=== PATIENT | female | born 1945 | race Caucasian/White ===

== ENCOUNTER 2020-10-25 18:29 | Emergency (ER) | payer MEDICARE, SELFPAY ==
[2020-10-25 18:31] VITALS: BP 198/109; PULSE 78; RESP 16; TEMP 36.7; O2SAT 97; BMI 31.1
[2020-10-25 18:51] VITALS: BP 212/75
--- NOTE | 2020-10-25 19:09 | ED.VIS.BACK ---
HPI History of Present Illness Chief Complaint: Back Detail of Chief Complaint: Back pain that started about 3 days ago. Informant: patient and family Onset/Context/Timing Quality: Sharp and Aching Current Severity: 10 Worsened by: improves with Movement Associated Symptoms Associated Symptoms: Negative for Numbness, Tingling, Radiation to Right Leg, Dysuria, Unable to Ambulate, Unable to Transfer and Urinary Retention Narrative Narrative: Patient's presenting with low back pain that started 3 days ago. Patient went her chiropractor 2 days ago and had some x-rays. He denies any trauma to her back. She denies pain rating down her legs. She denies any change in bowel or bladder function. She denies urinary symptoms. She denies fever. She denies abdominal pain. Prior similar symptoms: No [facility] Medical History (Updated 10/25/20 @ 19:[address] Imani Edward, DO) Back pain Glaucoma Home Medications cyclobenzaprine 10 mg PO TID PRN #20 tablet 10/25/20 [Rx Last Taken Unknown] hydrocodone-acetaminophen 1 tab PO Q4H PRN PRN 2 Days #14 tablet 10/25/20 [Rx Last Taken Unknown] Allergy/AdvReac Type Severity Reaction Status Date / Time No Known Allergies Allergy Verified 10/25/20 18:30 Social History Smoking Status: Former smoker ROS ROS ED Constitutional Constitutional ED: Reports systems reviewed and no addt'l complaints, except as documented; Denies body ache(s), change in weight or chills Eyes Eyes: Denies acute decrease in peripheral vision, change in vision, double vision or loss of vision ENT ENT ED: Reports none; Denies ear pain, lip swelling, loss taste/smell, neck pain, otalgia or sore throat Cardiovascular Cardiovascular: Reports none; Denies abdominal pain, chest pain with activity, leg edema, lightheadedness, palpitations, rapid heart rate or syncope Respiratory/Chest Respiratory/Chest: Reports none; Denies change in mental status, dry cough, dyspnea, hemoptysis, shortness of breath at rest or shortness of breath with exertion Gastrointestinal Gastrointestinal: Reports none; Denies abdominal pain, change in stool character, diarrhea, hematemesis, hematochezia, melena, rectal bleeding or vomiting Genitourinary Genitourinary ED: Reports none; Denies abdominal discomfort, anuria, dysuria, genital pain or polyuria Musculoskeletal Musculoskeletal: Reports none and back pain; Denies arthralgias, difficulty walking, extremity pain, muscle weakness, myalgias or neck pain Integumentary Reports none; Denies abscess or rash Neurologic Neurologic: Reports none; Denies abnormal gait, confusion, focal weakness, frequent falls, headache(s), loss of vision, numbness, paresthesias, radicular pain, vertigo or weakness Psychiatric Psychiatric: Reports systems reviewed and no addt'l complaints, except as documented and none; Denies behavioral changes, confusion, difficulty concentrating, hallucinations, suicidal ideation, tactile hallucinations or visual hallucinations Endocrine Endocrinology: Denies none, cold intolerance, excessive sweating, fatigue or heat intolerance Hematologic/Lymphatic Hematologic/Lymphatic: Reports none; Denies anemia, easy bleeding or easy bruising Allergic/Immunologic Allergic/Immunologic ED: Denies as per HPI, none, lip swelling, mouth swelling, throat swelling, tongue swelling or hives EXAM Physical Exam Const Vital Signs: 10/25/20 18:31 10/25/20 18:51 Temperature 98.1 F Temperature Source Temporal Pulse Rate 78 Respiratory Rate 16 Blood Pressure 198/109 H 212/75 H Blood Pressure Mean 138 120 Pulse Ox 97 Oxygen Delivery Method Room Air Positive well nourished and well developed General Appearance ED: well developed and NAD HEENT Reports TM's clear and moist mucous membranes normocephalic and atraumatic; Negative for trauma or tenderness Tympanic Membrane ED: Yes TM's clear Eyes PERRL and EOMs intact bilaterally General Eye ED: Negative for pale conjunctiva or scleral icterus Neck no lymphadenopathy, supple and no JVD General: Negative for tenderness Chest Wall inspection of chest normal and palpation of chest normal Chest: Negative for tenderness Resp normal respiratory effort and clear to auscultation bilaterally Effort and Inspection: Negative for respiratory distress or pain with movement Auscultation: Negative for rhonchi, wheezes or diminished lung sounds Cardio regular rate, regular rhythm, S1 normal heart sound, S2 normal heart sound and no murmurs Peripheral Pulses: pulses 2+ throughout GI normal to inspection, nondistended, normoactive bowel sounds, soft to palpation, non-tender, non-distended and no masses Back/Spine no CVA tenderness, normal to inspection and no thoracic nor lumbar tenderness Back/Spine Narrative: Patient has some mild tenderness palpation above the right posterior superior iliac spine. Negative straight leg raises. Deep tendon reflexes are plus 2 out of 4 bilaterally at the patella and Achilles. Patient has normal 5 extension bilaterally. Patient has normal sensation to light touch. General Back: Negative for CVA tenderness Extremity normal to inspection General Extremety ED: Negative for edema General Extremity: Negative for edema Neuro oriented x3, CN's II-XII intact bilaterally, no sensory deficits noted and gait normal Sensorium / Orientation: awake, alert, oriented to person, oriented to place and oriented to time Motor Exam: strength 5/5 throughout and strength abnormal Deep Tendon Reflexes: Rt Patellar (L4): 2+, Lt Patellar (L4): 2+, Rt Ankle (S1): 2+ and Lt Ankle (S1): 2+ Deep Tendon Reflexes Back: Rt Patellar (L4): 2+, Lt Patellar (L4): 2+, Rt Ankle (S1): 2+ and Lt Ankle (S1): 2+ Psych mental status grossly normal Skin no rashes or lesions noted and no wounds MDM MDM MDM Narrative Medical decision making narrative: Patient will be medicated with Dilaudid and Zofran as well as Norflex. She will be given a prescription for [place] and Flexeril. Patient will be advised to follow-up with primary care physician air pollution inspector for no doc within next 3 to 5 days. At this point I do not feel any imaging is indicated. There are no concerning signs or symptoms of cauda equina. Discharge Plan Triage Chief Complaint: Back ED Provider: Imani Edward Dx/Rx/DC Orders Clinical Impression: Non-traumatic mid back pain Instructions: ED Back Spasm, No Trauma Prescriptions: New cyclobenzaprine [cyclobenzaprine] 10 MG tablet 10 mg PO TID PRN (Reason: Muscle Spasm) Qty: 20 RF: 0 hydrocodone-acetaminophen [hydrocodone-acetaminophen] 1 TABLET tablet 1 tab PO Q4H PRN PRN (Reason: Pain) 2 Days Qty: 14 RF: 0 Primary Care Provider: NOT,DEFINED Referrals: Ed Goldberg MD [STAFF PHYSICIAN] - 3-5 Days NOT,DEFINED [Primary Care Provider] - Disposition Disposition: Home, self care
[2020-10-25] MEDS: HYDROmorphone 1 MG/ML Syringe IM (19:19)
[2020-10-25] MEDS: Ondansetron 4 MG/2 ML Vial IM (19:19)
[2020-10-25] MEDS: Orphenadrine 60 MG/2 ML Ampul IM (19:20)
== END 2020-10-25 19:59 | disposition home or self-care (01) ==
LOC: ED 19:31
PROVIDERS: Emergency Provider Emergency Medicine
DX: M54.6 Pain in thoracic spine (principal); M54.5 Low back pain; H40.9 Unspecified glaucoma; Z87.891 Personal history of nicotine dependence
CPT/HCPCS: 96372; 99282; J2405

== ENCOUNTER 2021-01-28 03:59 | Inpatient (IN) | payer MEDICARE, SELFPAY ==
[2021-01-28] VITALS (18 sets, daily range): BP systolic 138–206; BP diastolic 60–119; PULSE 56–88; RESP 15–22; TEMP 36.1–36.6; O2SAT 95–98; BMI 29.3; BMI 29.9
--- NOTE | 2021-01-28 04:06 | CT_ITS ---
STUDY: CT BRAIN WITHOUT CONTRAST REASON FOR EXAM: Female, 75 years old. Stroke RADIATION DOSAGE (If Supplied By Facility): CTDIvol = ( 44.99 ) mGy TECHNIQUE: Transaxial CT imaging of the brain was performed without administration of intravenous contrast material. Individualized dose optimization techniques were used for this CT. COMPARISON: No relevant priors. FINDINGS: Normal soft tissue structures. Normal calvarium. There is mild cerebral atrophy with widening of the extra-axial spaces and ventricular dilatation. There is mild to moderate bilateral periventricular and subcortical white matter hypoattenuation which is symmetric in distribution. Normal basal ganglia and thalami. Normal brainstem. Normal cerebellum. There is no intracranial hemorrhage. There are no findings of an acute ischemic infarction. There is mild mucoperiosteal thickening of the paranasal sinuses. . CT/STROKE Brain/Head without Cont IMPRESSION: 1. No acute intracranial abnormality. 2. Mild bilateral periventricular and subcortical white matter chronic small vessel disease with age appropriate cerebral atrophy. 3. Chronic sinus disease N.B. : The above Results were Read Back by Paulo Matamoros MD to Dr. Eric MD, and understanding confirmed on 01/28/2021 04:22:00 (ET). Electronically Signed: Paulo Matamoros MD at 4:23 EDT Tel , Service support ,
--- NOTE | 2021-01-28 04:06 | EKG12_ITS ---
Test Reason : STROKE Blood Pressure : / mmHG Vent. Rate : 076 BPM Atrial Rate : 076 BPM P-R Int : 158 ms QRS Dur : 092 ms QT Int : 378 ms P-R-T Axes : 017 044 -63 degrees QTc Int : 425 ms Normal sinus rhythm Nonspecific ST and T wave abnormality Abnormal ECG Confirmed by BRE FELIX, REID ([id number]), film waxer OSCAR BUTCHER ([id number]) on 01/29/2021 10:09:51 AM Referred By: SHRUTI Confirmed By:REID DÍAZ MD
--- NOTE | 2021-01-28 04:06 | RAD_ITS ---
STUDY: X-RAY CHEST REASON FOR EXAM: Female, 75 years old. Neuro deficit, acute, stroke suspected TECHNIQUE: Single AP portable view of the chest. COMPARISON: None. FINDINGS: There is atelectasis versus small infiltrate overlying the peripheral left lung base.. There is no demonstrated pleural abnormality. Normal size heart. Normal mediastinum and elicia. There is atherosclerotic calcification of the aortic arch with tortuosity. There are no demonstrated acute fractures or destructive bone lesions. There is no demonstrated abnormality of the visualized soft tissue structures of the upper abdomen. RAD/Chest 1 View IMPRESSION: Atelectasis versus small infiltrate in the lateral left lung base. Electronically Signed: Isaias Sepulveda MD at 5:45 EDT , Service support ,
--- NOTE | 2021-01-28 04:08 | EDS_ITS ---
HPI History of Present Illness Chief Complaint: Neuro S/Sx Informant: patient and family Narrative Narrative: I discussed with patient, EMS and family members. Evidently this patient was seen by her daughter last night about 1829. The daughter states that she just did not seem right but she did not have focal weakness or slurring of her words. She seemed very tired. She thought something was wrong. Her mother then told her that she had a glass of beer and a drink of wine and they thought that this was the cause. It sounds like the patient went to bed about 8:00. When she woke up this morning she had trouble dialing the phone, had speech difficulty and left-sided weakness. So she might of had nonspecific nonfocal symptoms at this 1830 yesterday. However last known well may be at 8 PM or 1999 when she went to bed. She has no headache. No recent trauma. Patient does have a strong family history of strokes but has no history of strokes or self. No heart disease. No diabetes blood pressure cholesterol. Only medication she takes are eyedrops for glaucoma. Nothing makes her symptoms better or worse. [facility] Medical History (Updated 01/28/21 @ 04:[address] Lito Reyes MD) Back pain Carpal tunnel syndrome of left wrist Carpal tunnel syndrome on both sides Glaucoma Heel spur Home Medications latanoprost 1 drp EACH EYE BID 01/28/21 [History Last Taken Unknown] timolol maleate 1 drp EACH EYE DAILY 01/28/21 [History Last Taken Unknown] Allergy/AdvReac Type Severity Reaction Status Date / Time No Known Allergies Allergy Verified 01/28/21 04:02 Social History Smoking Status: Former smoker ROS ROS ED Constitutional Constitutional ED: Denies chills or fever(s) Eyes Eyes: Denies blurry vision, change in vision or diplopia ENT ENT ED: Denies rhinorrhea Cardiovascular Cardiovascular: Denies chest pain or palpitations Respiratory/Chest Respiratory/Chest: Denies cough or dyspnea Gastrointestinal Gastrointestinal: Denies abdominal pain, nausea or vomiting Genitourinary Genitourinary ED: Denies urinary frequency Musculoskeletal Musculoskeletal: Denies back pain Integumentary Denies rash Neurologic Neurologic: Reports weakness; Denies headache(s) or paresthesias Psychiatric Psychiatric: Denies depression Hematologic/Lymphatic Hematologic/Lymphatic: Denies easy bleeding or easy bruising Allergic/Immunologic Allergic/Immunologic ED: Denies urticaria EXAM Physical Exam Narrative Exam Narrative: Patient is seen in the hallway on ambulance cot. We were waiting for her at her arrival. Const Vital Signs: 01/28/21 04:23 01/28/21 04:28 01/28/21 04:31 Temperature 97.8 F 97.8 F Temperature Source Temporal Temporal Pulse Rate 88 78 82 Respiratory Rate 22 H 22 H 22 H Blood Pressure 173/108 H 138/119 H 138/119 H Blood Pressure Mean 129 125 125 Pulse Ox 95 97 97 Oxygen Delivery Method Room Air Room Air Room Air 01/28/21 04:36 01/28/21 05:06 01/28/21 05:10 Temperature Temperature Source Pulse Rate 80 68 73 Respiratory Rate 22 H 15 19 H Blood Pressure 138/119 H 202/68 H 202/68 H Blood Pressure Mean 125 112 112 Pulse Ox 96 97 97 Oxygen Delivery Method Room Air Positive well nourished and well developed General Appearance ED: well developed and NAD HEENT atraumatic and trauma Eyes Eyes Narrative: Patient does have some subtle relative weakness to the left side of his her face. She is able to smile speak open and close eyes but there is subtle weakness. Neck supple Resp normal respiratory effort and clear to auscultation bilaterally Cardio Rate: regular rate Rhythm: regular rhythm GI normal to inspection, nondistended, normoactive bowel sounds, soft to palpation and non-tender Back/Spine no CVA tenderness Extremity normal to inspection General Extremety ED: Negative for edema or tenderness General Extremity: Negative for edema Neuro oriented x3 Sensorium / Orientation: alert Psych mental status grossly normal Skin Rashes: no rashes STROKE Vital Signs/Narrative: Vital Signs Temp Pulse Resp BP Pulse Ox 01/28/21 05:10 73 19 H 202/68 H 97 01/28/21 05:06 68 15 202/68 H 97 01/28/21 04:36 80 22 H 138/119 H 96 01/28/21 04:31 82 22 H 138/119 H 97 01/28/21 04:28 97.8 F 78 22 H 138/119 H 97 01/28/21 04:23 97.8 F 88 22 H 173/108 H 95 NIHSS Initial: 1a Level of Consciousness: 0 1b LOC Questions (Score 2 if aphasic/stupor): 0 1c LOC Commands (Only score 1st attempt): 0 2 Best Gaze (If aphasic, use reflexive mvmts.): 0 3 Visual: 0 4 Facial Palsy: 1 5 Motor Arm Right (UN = amputation/fusion): 0 5 Motor Arm Left: 1 6 Motor Leg Right: 0 6 Motor Leg Left: 2 7 Limb ataxia (Only + if out of proportion): 0 8 Sensory (Aphasia/stupor=0 or 1, coma=2): 0 9 Best Language: 0 10 Dysarthria (mute, coma=2, intubated=UN): 1 11 Extinction and Inattention (only scored if +): 0 Total Score: 5 MDM MDM MDM Narrative Medical decision making narrative: Patient's recheck when she gets back to the room. Her NIH now is 4. She had had a 5 because the first time I checked her left leg it did drop and hit the bed. She is now able to hold it up for the chemistry quality control technician but it is weaker and does do a little bit of drifting. It does not hit the bed now. Blood pressure is mildly elevated. We are rechecking a second 1. We have teleneurology dialed up and there about the start talking to her. Patient has had neurology evaluation. They agree that there likely is a stroke ongoing. However, it is not a large area likely. She actually has better strength of both her left arm and left leg now. They are still clearly weaker than the right but she can hold them up for a full 5 seconds without much difficulty. She is clearly showing slight improvement. Her dysarthria, however, is unchanged. The plan was no TPA due to the level of stroke, the combination of improving, and the time since onset. Patient is now stating that somewhere between 6 and 8 she noticed she was having trouble walking. Therefore her symptoms are approaching up to 11 hours now. The plan was that we would not intervene with TPA. If there was an abnormality on the CTA we could consider secondary treatment. Right after leaving the room I got called by radiology and there is no acute abnormality on her CTA. I ask again explained the plan to the patient and family. We also discussed permissive hypertension. Patient's blood pressure has been maintained below threshold so far. Blood work shows some mild elevation of glucose. Alcohol level is quite low as was expected. Covid is negative. EKG shows sinus rhythm. Discussed case with hospitalist. Patient will be admitted. She is given aspirin here. Lab Data Labs: Laboratory Results - last 24 hr 01/28/21 01/28/21 01/28/21 04:18 04:18 04:18 WBC 9.7 RBC 4.78 Hgb 14.1 Hct 43.1 MCV 90.2 MCH 29.5 MCHC 32.7 RDW Std Deviation 44.6 H RDW Coeff of Robi 13.4 Plt Count 228 MPV 11.4 Immature Gran % (Auto) 0.300 Neut % (Auto) 60.5 Lymph % (Auto) 31.9 [place] % (Auto) 5.1 Eos % (Auto) 1.5 Baso % (Auto) 0.7 Absolute Neuts (auto) 5.9 Absolute Lymphs (auto) 3.10 Nucleated RBC % 0 PT 13.2 INR 1.1 APTT 30.1 Sodium 141 Potassium 3.5 Chloride 109 H Carbon Dioxide 25.0 Anion Gap 7 BUN 18 Creatinine 1.08 H Estim Creat Clear Calc 41.49 Est GFR (MDRD) Af Amer 63 Est GFR (MDRD) Non-Af 52 L BUN/Creatinine Ratio 16.7 Glucose 144 H Calcium 9.1 Troponin I High Sens 9 Ethyl Alcohol 01/28/21 04:18 WBC RBC Hgb Hct MCV MCH MCHC RDW Std Deviation RDW Coeff of Robi Plt Count MPV Immature Gran % (Auto) Neut % (Auto) Lymph % (Auto) [place] % (Auto) Eos % (Auto) Baso % (Auto) Absolute Neuts (auto) Absolute Lymphs (auto) Nucleated RBC % PT INR APTT Sodium Potassium Chloride Carbon Dioxide Anion Gap BUN Creatinine Estim Creat Clear Calc Est GFR (MDRD) Af Amer Est GFR (MDRD) Non-Af BUN/Creatinine Ratio Glucose Calcium Troponin I High Sens Ethyl Alcohol < 3.0 Radiography Diagnostic Testing: Radiology Impression Head/Neck CTA 01/28/21 04:11 IMPRESSION: 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 The P2 segments are supplied by patent posterior communicating arteries bilaterally. Diminutive left vertebral artery, which does not supply the basilar artery. This is on a developmental basis. 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 No other evidence for hemodynamically significant arterial stenosis in the head or neck. No visualized occlusion of major arteries. No visualized aneurysm. Diminutive basilar artery, probably on a development basis. N.B. : The above Results were Read Back by Isaias Sepulveda MD to MD Jose Antonio, and understanding confirmed on 01/28/2021 04:40:28 (ET). 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 The P2 segments are supplied by patent posterior communicating arteries bilaterally. Diminutive left vertebral artery, which does not supply the basilar artery. This is on a developmental basis. 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 No other evidence for hemodynamically significant arterial stenosis in the head or neck. No visualized occlusion of major arteries. No visualized aneurysm. Diminutive basilar artery, probably on a development basis. N.B. : The above Results were Read Back by Isaias Sepulveda MD to MD Jose Antonio, and understanding confirmed on 01/28/2021 04:40:28 (ET). Electronically Signed: Isaias Sepulveda MD at 4:53 EDT , Service support , EKG Initial EKG: Comments: EKG done as part of stroke work-up read by me does show sinus rhythm with a rate of 76. No ventricular ectopy. There is mild baseline variation and diffuse nonspecific ST and T wave changes. No sign of infarct or ischemia. OK interval, QRS duration, QTc are normal. Stroke Documentation Questions Stroke Team Activated: Yes Discharge Plan Triage Chief Complaint: Neuro S/Sx ED Provider: Lito Reyes Dx/Rx/DC Orders Clinical Impression: Acute CVA (cerebrovascular accident) Prescriptions: No Action latanoprost 0.005 % drops 1 drp EACH EYE BID RF: 0 timolol maleate 0.5 % drops 1 drp EACH EYE DAILY RF: 0 Primary Care Provider: Care Physician,No Primary Referrals: Care Physician,No Primary [Primary Care Provider] -
--- NOTE | 2021-01-28 04:11 | CT_ITS ---
STUDY: CTA HEAD AND NECK WITH CONTRAST REASON FOR EXAM: Female, 75 years old. Neuro deficit, acute, stroke suspected RADIATION DOSAGE (If Supplied By Facility): CTDIvol = ( 22.83 ) mGy, DLP = ( 815.23 ) mGycm TECHNIQUE: CT angiography was performed with a multi-detector CT scanner. Data acquisition was obtained from the skull base through the vertex following intravenous administration of IV 100mL Isovue-370. MIP images were reconstructed from the axial data set. Post-processing of the angiographic images was performed, with multiplanar reformation, but without 3D reconstruction. Individualized dose optimization techniques were used for this CT. COMPARISON: Noncontrast CT scan brain 01/28/2021. FINDINGS: Normal bilateral petrous carotid arteries. There is calcified plaque formation of the right cavernous carotid artery, with a mild stenosis (less than 50%). There is calcified plaque formation of the left cavernous carotid artery, with a mild stenosis (less than 50%). Normal right A1 segments of the anterior cerebral artery. Normal left A1 segments of the anterior cerebral artery. There is non-visualization of the anterior communicating artery (ACOM). Normal bilateral A2 segments of the anterior cerebral arteries. Normal right M1 and M2 segments of the middle cerebral arteries, with a normal M1 bifurcation. Normal left M1 and M2 segments of the middle cerebral arteries, with a normal M1 bifurcation. Normal right posterior communicating artery (PCOM). Normal left posterior communicating artery (PCOM). There is a small atretic left vertebral artery with a dominant right vertebral artery. The left vertebral artery does not visibly supply the basilar artery. As seen on series 2, axial images 346-347, there is focal severe stenosis of the right vertebral artery, without demonstrated occlusion. 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 The visualized bilateral superior cerebellar (SCA) arteries are normal. There is absence of the right and left P1 segments of the posterior cerebral arteries. Normal visualized bilateral P2 and P3 segments of the posterior cerebral arteries, which are supplied by the posterior communicating arteries. There is no demonstrated aneurysm of the red devil of [place]. There is no demonstrated acute abnormality of the visualized brain. AORTIC ARCH: There is atherosclerotic calcific plaque formation of the aortic arch and great vessels arising from the aortic arch, without a hemodynamically significant stenosis. There is a normal origin of the brachiocephalic, left common carotid, and left subclavian arteries.. RIGHT CAROTID ARTERIES: Normal right common carotid artery (CCA). There is mild atherosclerotic plaque formation with minimal narrowing of the right carotid bulb. Normal origin of the right internal carotid (ICA) artery without a hemodynamically significant stenosis. Normal visualized cervical portion of the right internal carotid artery. Normal origin of the right external carotid artery (ECA). LEFT CAROTID ARTERIES: Normal left common carotid artery (CCA). Normal left common carotid bulb. Normal origin of the left internal carotid (ICA) artery without a hemodynamically significant stenosis. Normal visualized cervical portion of the left internal carotid artery. Normal origin of the left external carotid artery (ECA). VERTEBRAL ARTERIES: There is enhancement within the bilateral vertebral arteries with a small left vertebral artery, and a dominant right vertebral artery. 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 The P2 segments are supplied by patent posterior communicating arteries bilaterally. Diminutive left vertebral artery, which does not supply the basilar artery. This is on a developmental basis. 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 No other evidence for hemodynamically significant arterial stenosis in the head or neck. No visualized occlusion of major arteries. No visualized aneurysm. Diminutive basilar artery, probably on a development basis. N.B. : The above Results were Read Back by Isaias Sepulveda MD to MD Jose Antonio, and understanding confirmed on 01/28/2021 04:40:28 (ET). Electronically Signed: Isaias Sepulveda MD at 4:53 EDT , Service support ,
[2021-01-28 04:23] LABS: Absolute Neutrophil Count 5.9 X10^3/uL (2.0-7.7); Basophil# 0.07 X10^3/uL; Basophil% 0.7 % (0-1); Eosinophil# 0.15 X10^3/uL; Eosinophils% 1.5 % (0-5); Hematocrit 43.1 % (37-47); Hemoglobin 14.1 g/dL (12.0-15.0); Lymphocyte % 31.9 % (19-41); Mean Corp Hgb Conc 32.7 g/dL (32-36); Mean Corpuscular Hgb 29.5 pg (27.0-32.0); Mean Corpuscular Volume 90.2 fL (81-99); Mean Platelet Vol. 11.4 fl (6.2-12.0); Monocyte% 5.1 % (0-10); NRBC Flagged by Analyzer 0 % (0-5); Neutrophil # 5.87 X10^3/uL (2.7-7.7); Neutrophil % 60.5 % (47-70); Platelet Count 228 K/mm3 (150-450); RBC Distribution Width CV 13.4 % (11.6-14.6); RBC Distribution Width SD 44.6 fl (35.1-43.9); Red Blood Count 4.78 M/mm3 (4.2-5.4); White Blood Count 9.7 K/mm3 (4.4-11.0)
--- NOTE | 2021-01-28 04:31 | ED.RN ---
osu beaming in at this time
[2021-01-28 04:35] LABS: International Normalized Ratio 1.1; Prothrombin Time (Protime)PT. 13.2 SECONDS (11.7-14.9)
[2021-01-28 04:36] LABS: Partial Thromboplast Time 30.1 Seconds (24.1-36.2)
[2021-01-28 04:43] LABS: Anion Gap 7 (5-15); BUN 18 mg/dL (7-18); BUN/Creat Ratio 16.7 RATIO (10-20); Calcium,Total 9.1 mg/dL (8.5-10.1); Chloride 109 mmol/L (98-107); Creatinine, Serum 1.08 mg/dL (0.55-1.02); EST Glomerular Filtration Rate 52 mL/min (>60); Est Glom Filt Rate - Afr Amer 63 mL/min (>60); Estimated Creatinine Clearance 41.49 ml/min; Glucose 144 mg/dL (74-106); Potassium 3.5 mmol/L (3.5-5.1); Sodium Level 141 mmol/L (136-145); Troponin-I HS 9 pg/mL (3.0-54.0)
[2021-01-28 05:09] LABS: Alcohol, Blood (Medical)-Serum < 3.0 mg/dL
--- NOTE | 2021-01-28 05:14 | HP.PCM.HOS_ITS ---
HPI - General General Date of Admission: 01/28/21 Date of Service: 01/28/21 Chief Complaint: Dysarthria, L sided weakness HPI Narrative The patient is a 75 y/o F w/ PMHx: Glaucoma, Former Tobacco use, Chronic back pain who presents to the [facility] ED on 01/28/21 with history of last known well per patient's daughter at approximately 1830 the evening prior although she seemed very tired and off compared to her normal with reportedly a glass of beer and a glass of wine as potentially the etiology for her feeling off, reportedly going to bed at 8 and upon awakening early this morning had difficulty dialing the phone with altered speech and left-sided weakness prompting EMS call. ED NIH stroke scale with a total of 5 with 1 for facial palsy, 1 for left upper extremity motor, 2 for left lower extremity motor, 1 for dysarthria. Repeat age stroke scale per ED physician 4-->3 with improvement of left lower extremity, ongoing unchanged dysarthria. Patient denies taking any routine daily baby aspirin or antiplatelet therapy. [facility] telemetry neurology stroke with acute stroke call was performed per ED. Work-up in the ED included T 98.1, heart rate 78, BP 198/109--> 138/119 following labetalol, respiratory rate 16, 97% on room air, CBC with WBC 9.7, hemoglobin 14.1, platelet 228 without marked shift, unremarkable coags, BMP with chloride 109, BUN/creatinine 18/1.08, glucose 144, high-sensitivity troponin 9, ethyl alcohol level > 3, CT head preliminary without acute findings with final read pending per Radiology, CTA head and neck with absent P1 segments of the posterior cerebral arteries bilaterally, P2 segment supplied by patent posterior communicating arteries bilaterally, diminutive left vertebral artery which does not appear to supply the basilar artery, focal severe stenosis of the intracranial segment of the right vertebral artery with no other evidence for hemodynamically significant arterial stenosis in the head or neck with no visualized occlusion of major arteries and no visualized aneurysms, diminutive basilar artery, EKG with SR without acute evidence of ischemia. In the ED patient administered labetalol 20 mg IV x1. [facility] Medical History (Updated 01/28/21 @ 05:[address] Ning Bundy MD) Back pain Carpal tunnel syndrome on both sides Former tobacco use Glaucoma Heel spur Home Medications latanoprost 1 drp EACH EYE BID 01/28/21 [History Last Taken Unknown] timolol maleate 1 drp EACH EYE DAILY 01/28/21 [History Last Taken Unknown] Allergy/AdvReac Type Severity Reaction Status Date / Time No Known Allergies Allergy Verified 01/28/21 04:02 Family History (Updated 01/28/21 @ 05:[address] Ning Bnudy MD) Mother CVA (cerebral vascular accident) Hypertension Father CVA (cerebral vascular accident) Hypertension Surgical History (Updated 01/28/21 @ 05:[address] Ning Bundy MD) History of bunionectomy of both great toes S/p bilateral carpal tunnel release Social History (Updated 01/28/21 @ 05:[address] Ning Bundy MD) household members: none Smoking Status: Former smoker how long ago did patient quit smoking: Quit remotely, primarily social smoker. alcohol intake: current alcohol intake frequency: a few times a week substance use type: does not use ROS ROS Narrative Admission Review of Systems: CONSTITUTIONAL: No weight loss, fever, chills, + weakness or fatigue. HEENT: Eyes: No visual loss, blurred vision, double vision or yellow sclerae. Ears, Nose, Throat: No hearing loss, sneezing, congestion, runny nose or sore throat. SKIN: No rash or itching, lesions, wounds. CARDIOVASCULAR: No chest pain, chest pressure or chest discomfort, palpitations, edema, orthopnea, syncopal events. RESPIRATORY: No shortness of breath, cough or sputum, wheezing, hemoptysis. GASTROINTESTINAL: No anorexia, nausea, vomiting or diarrhea, abdominal pain, melena, BRBPR. GENITOURINARY: No dysuria, frequency, urgency or retention. NEUROLOGICAL: + Left-sided weakness, slurred speech, no headache, dizziness, syncope, paralysis, ataxia, change in bowel or bladder control, seizure. MUSCULOSKELETAL: + muscle, back pain, joint pain or stiffness. HEMATOLOGIC: No anemia, bleeding or bruising. LYMPHATICS: No enlarged nodes. No history of splenectomy. PSYCHIATRIC: No history of depression or anxiety. ENDOCRINOLOGIC: No reports of sweating, cold or heat intolerance. No polyuria or polydipsia. ALLERGIES: No history of asthma, hives, eczema or rhinitis. Vital Signs Vital Signs Vital Signs: 01/28/21 04:23 01/28/21 04:28 01/28/21 04:31 Temperature 97.8 F 97.8 F Temperature Source Temporal Temporal Pulse Rate 88 78 82 Respiratory Rate 22 H 22 H 22 H Blood Pressure 173/108 H 138/119 H 138/119 H Blood Pressure Mean 129 125 125 Pulse Ox 95 97 97 Oxygen Delivery Method Room Air Room Air Room Air 01/28/21 04:36 01/28/21 05:06 01/28/21 05:10 Temperature Temperature Source Pulse Rate 80 68 73 Respiratory Rate 22 H 15 19 H Blood Pressure 138/119 H 202/68 H 202/68 H Blood Pressure Mean 125 112 112 Pulse Ox 96 97 97 Oxygen Delivery Method Room Air Weight Weight: 181 lb 14.102 oz Body Mass Index (BMI) 29.3 Physical Exam Narrative Physical Examination: General: Awake, alert, oriented x 3 and cooperative, seated upright in the ED bed in no apparent distress, evident dysarthria. Skin: Normal color, normal turgor, no icterus, no cyanosis. HEENT: AT/NC, EOMI, PERRLA, mildly dry MM, no carotid bruits or JVD noted. Lungs: CTA bilaterally, moderate effort, mild decrease BL bases, no rales, ronchi or wheezing. Heart: Regular rate and rhythm; no gallop, rub audible. Abdomen: Soft, overweight, NTTP, ND, normal BS, no HSM. Extremities: No cyanosis, clubbing, or edema. Neurological: Patient awake, alert, oriented as noted, cognitive function appears baseline intact; pupils equally reactive to light and accommodation, cranial nerves II-XII grossly normal, ongoing dysarthria evident, able to somewhat correct self, moving all 4 extremities, left-sided weakness evident with left upper extremity 4/5, left lower extremity 3/5, equivocal Babinski, some difficulty left-sided finger-nose but primarily intact, difficulty with left [id number], sensation intact. Psychiatric: Affect appears mildly fatigued otherwise normal, no acute evidence of depressive or anxiety feelings. Results Lab / Micro Data Result Diagrams: 01/28/21 04:18 01/28/21 04:18 Labs: Laboratory Results - last 24 hr 01/28/21 04:18: WBC 9.7, RBC 4.78, Hgb 14.1, Hct 43.1, MCV 90.2, MCH 29.5, MCHC 32.7, RDW Std Deviation 44.6 H, RDW Coeff of Robi 13.4, Plt Count 228, MPV 11.4, Immature Gran % (Auto) 0.300, Neut % (Auto) 60.5, Lymph % (Auto) 31.9, [place] % (Auto) 5.1, Eos % (Auto) 1.5, Baso % (Auto) 0.7, Absolute Neuts (auto) 5.9, Absolute Lymphs (auto) 3.10, Nucleated RBC % 0 01/28/21 04:18: PT 13.2, INR 1.1, APTT 30.1 01/28/21 04:18: Sodium 141, Potassium 3.5, Chloride 109 H, Carbon Dioxide 25.0, Anion Gap 7, BUN 18, Creatinine 1.08 H, Estim Creat Clear Calc 41.49, Est GFR (MDRD) Af Amer 63, Est GFR (MDRD) Non-Af 52 L, BUN/Creatinine Ratio 16.7, Gluc ose 144 H, Calcium 9.1, Troponin I High Sens 9 01/28/21 04:18: Ethyl Alcohol < 3.0 Radiology Impression Head/Neck CTA 01/28/21 04:11 IMPRESSION: 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 The P2 segments are supplied by patent posterior communicating arteries bilaterally. Diminutive left vertebral artery, which does not supply the basilar artery. This is on a developmental basis. 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 No other evidence for hemodynamically significant arterial stenosis in the head or neck. No visualized occlusion of major arteries. No visualized aneurysm. Diminutive basilar artery, probably on a development basis. N.B. : The above Results were Read Back by Isaias Sepulveda MD to MD Jose Antonio, and understanding confirmed on 01/28/2021 04:40:28 (ET). 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 The P2 segments are supplied by patent posterior communicating arteries bilaterally. Diminutive left vertebral artery, which does not supply the basilar artery. This is on a developmental basis. 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 No other evidence for hemodynamically significant arterial stenosis in the head or neck. No visualized occlusion of major arteries. No visualized aneurysm. Diminutive basilar artery, probably on a development basis. N.B. : The above Results were Read Back by Isaias Sepulveda MD to MD Jose Antonio, and understanding confirmed on 01/28/2021 04:40:28 (ET). Electronically Signed: Isaias Sepulveda MD at 4:53 EDT , Service support , Assessment & Plan Assessment/Plan (1) Acute CVA (cerebrovascular accident): PLAN: The patient is a 75 y/o F w/ PMHx: Glaucoma, Former Tobacco use, Chronic back pain who presents to the [facility] ED on 01/28/21 with history of last known well per patient's daughter at approximately 1830 the evening prior although she seemed very tired and off compared to her normal with reportedly a glass of beer and a glass of wine as potentially the etiology for her feeling off, reportedly going to bed at 8 and upon awakening early this morning had difficulty dialing the phone with altered speech and left-sided weakness prompting EMS call. 1. Dysarthria, left-sided weakness suspected secondary to Acute CVA: Will admit to PCU, will obtain MRI Brain, obtain ECHO, PT/OT/Speech/Nutrition evaluation per protocol. Will consult Neurology for evaluation once further imaging and work-up obtained. Will allow permissive HTN, maintain on asa, given age add moderate dose statin w/ AM FLP, fall precautions. Pending hemoglobin A1c, magnesium, TSH, FLP as noted. 2. Elevated BP without hypertensive diagnosis: Admission blood pressure notably elevated, initially 198/109 with repeat 212/75--> 138/119 following labetalol, given acute presentation noted #1 we will maintain permissive hypertension with as needed agents, if ongoing following work-up will need to initiate oral regimen. 3. Hyperglycemia: Admission glucose 144, given #1 hemoglobin A1c pending as noted. 4. ? Chronic Kidney Disease Stage III, unclear subtype versus acute renal insufficiency: Admission BUN/Cr 18/1.08, baseline renal function unclear, possibly insufficiency versus underlying chronic kidney disease, continue judicious hydration given acute presentation as noted #1, repeat BMP in AM. 5. Glaucoma: Unclear specific type, we will continue patient home eyedrop regimen. 6. Former tobacco use: Encourage continued tobacco cessation. 7. DVT prophylaxis: SCDs, Lovenox. 8. CODE status: Patient does not have healthcare power of attorney recruiter nor living will. She has been primarily healthy prior to current presentation. Given admission and new potential multiple comorbidities, discussed CODE status at length including difference between FULL code, DNR-CCA and DNR-CC status. Following discussions about the differences in these status, requested Full Code status. Encourage discussions with case management/social work for information if interested. Advanced Care Planning Face to Face Time: 16 minutes. Charges/Coding Visit Charges Inpatient E&M: 70484 Init Hosp L3 Procedures Hospitalists Procedures: 78932 Advncd Care Plan 30 Min
[2021-01-28] MEDS: Aspirin 81 MG TAB.CHEW 324 MG PO (05:26)
[2021-01-28 05:47] LABS: Magnesium 2.6 mg/dL (1.6-2.6)
--- NOTE | 2021-01-28 06:19 | ECHOD_ITS ---
Version 2 Reason For Study: TIA/CVA Procedure This was a 2D Doppler, Color Flow transthoracic echocardiogram. The study was technically difficult. Exam performed portable in patient room. Left Ventricle Normal LV size. Left ventricular systolic function is hyperdynamic. The estimated ejection fraction is 75 %. No evidence for diastolic dysfunction. No regional wall motion abnormalities noted. Right Ventricle Normal RV size. Normal systolic function. Atria The left atrium is mildly enlarged. Normal right atrium. No doppler evidence for ASD. Mitral Valve There is moderate mitral annular calcification. Extension of the mitral annular calcification on the base of the posterior mitral valve leaflet. Trivial mitral valve insufficiency. Tricuspid Valve Normal tricuspid valve. Mild tricuspid valve insufficiency. Right ventricular systolic pressure estimated to be 30 mmHg. Aortic Valve Trisinus/trileaflet aortic valve. Mild focal aortic valve calcification. Pulmonic Valve The pulmonic valve is not well visualized. Great Vessels The aortic root is not well visualized. Calcified aortic root. Pericardium/Pleural No pericardial effusion. Medication Performed a rapid injection of agitated mix of 9 cc saline and 1cc air to assess for atrial septal defect. MMode/2D Measurements & Calculations LVIDd: 4.5 cm IVSd: 1.2 cm Ao root diam: 3.0 cm LVIDs: 2.8 cm LVPWd: 1.1 cm RVDd: 3.1 cm FS: 38.1 % LAV(MOD-bp): 57.0 ml LA A4 area: 19.9 cm2 LA dimension(2D): 3.6 cm LAV(MOD-bp) Indexed: 29.7 ml/m2 LAV(MOD-sp2): 51.7 ml LAV(MOD-sp4): 57.8 ml RA A4 area: 15.4 cm2 Time Measurements MV dec time: 0.37 sec Doppler Measurements & Calculations MV E max [place]: 62.8 cm/sec Lat Peak E' [place]: 5.3 cm/sec Med Peak E' [place]: 4.6 cm/sec MV A max [place]: 97.0 cm/sec E/E' lat: 11.9 E/E' med: 13.5 MV E/A: 0.65 Ao V2 max: 147.8 cm/sec LV V1 max: 102.7 cm/sec PA V2 max: 98.1 cm/sec Ao max P.7 mmHg LV V1 max P.2 mmHg TR max [place]: 265.6 cm/sec TR max P.7 mmHg ECHO/Echo Complete Interpretation Summary The study was technically difficult. Left ventricular systolic function is hyperdynamic. The estimated ejection fraction is 75 %. The left atrium is mildly enlarged. There is moderate mitral annular calcification. Extension of the mitral annular calcification on the base of the posterior mitr al valve leaflet. Trivial mitral valve insufficiency. Mild tricuspid valve insufficiency. Mild focal aortic valve calcification. Calcified aortic root. Right ventricular systolic pressure estimated to be 30 mmHg. No evidence for diastolic dysfunction. Comment: 2D echocardiographic images obtained demonstrate an echo lucency poten tially compatible with a 3.7 cm x 5.2 cm hepatic cyst. Consider further evaluation with appropria te radiologic studies as clinically indicated. Ordering Physician: Ning Bundy Referring Physician: DANNY PCP Performed By: Brigitte Correa, VIVIAN, RVT
--- NOTE | 2021-01-28 06:19 | MRI_ITS ---
HISTORY: CVA, left sided weakness, slurred speech. TECHNIQUE: Multiplanar and multisequence MR images of the brain were obtained without gadolinium. # of images incl. paperwork: 282. COMPARISON: CT same day. FINDINGS: BRAIN PARENCHYMA: Multiple small foci of restricted diffusion in the bilateral cerebellar hemispheres. Mild T2 FLAIR hyperintense signal in the periventricular white matter. INTRACRANIAL HEMORRHAGE: No acute intracranial hemorrhage. CSF SPACES: Mild generalized volume loss. No midline shift or other significant mass effect. No extra-axial fluid collection. VASCULAR SYSTEM: Hypoplastic left vertebral artery. ORBITS: Unremarkable. PARANASAL SINUSES AND MASTOID AIR CELLS: Clear. MRI/Brain without Contrast IMPRESSION: Multiple small acute bilateral cerebellar infarcts. Chronic small vessel ischemic gliosis. at 1200 Reported and signed by: Terri Trinidad MD Electronically Signed: Terri Trinidad MD at 11:59 EDT Tel , Service support ,
--- NOTE | 2021-01-28 07:09 | PCS.PANDOC ---
PANDEMIC DOCUMENTATION INITIATED: Date: 01/28/2021 Time: 619
[2021-01-28] MEDS: 0.9% Saline Lock 10 ML Syringe IV (07:12)
[2021-01-28] MEDS: 0.9% Normal Saline 1,000 ML 100 ML IV (07:15)
--- NOTE | 2021-01-28 07:29 | TELEMED_ITS ---
[facility] Telemed has confirmed receipt of a request for visit. This document confirms receipt of the order initiating the consult. To find the results of the consultation, please view the patient's reports for the scanned Telemed Consult.
[2021-01-28] MEDS: Enoxaparin 40 MG/0.4 ML Syringe SC (09:10)
[2021-01-28] MEDS: Aspirin 81 MG TAB.CHEW PO (09:10)
[2021-01-28] MEDS: Timolol 0.5% 5ML OPTH.BTL 1 DRP EACH EYE (09:18)
--- NOTE | 2021-01-28 13:53 | CASEMGMT ---
RN CM Assessment Introduced role of RN CM to patient and Dtr Shelley at bedside. Patient is alert, oriented and able to participate in RN CM Assessment. Care providers, pharmacy, and demographics verified. Admit Dx: Acute CVA Re-Admit: No Barriers/Issues: Patient lives alone in a mother in law suite on same property of her son. Patient has 6 children but all work and would not be able to stay with patient or patient stay with them with 24/7 watch. One dtr baby sits and patient may be able to stay with her and she can help patient some but has her own health conditions making it limited. PCP: None, list given to patient. Patient states that she has some financial concerns with how much this hospital stay is going to cost and will probably have f/u with [facility] as this is where her used to go. Specialists: Ophthalmology Preferred [facility]acy: [facility] Insurance: [employer] Rx Benefit: Yes LNOK: Dtr Raya and Dtr Shelley LW/HPOA: None. Declined completion on this admission. AD information provided and informed can return as an outpatient to complete with social work dept at a later time should she choose. Living Arrangements: See above note. Alone, mobile home, 2 steps to enter. ADL?s: Independent with ambulation and ADLs prior. Has a walker, cane available if needed. Has a walk in shower and Tub shower. Transportation: Patient drives, either her Dtr Raya or Dtr Shelley will transport upon DC DME: Walker, Cane available HHC: None SNF: None Goal: RU Vs TCU- if declined by both, plan to stay with family and outpatient PT. Patient declined HH PT. RNCM remains available for any further DC Coordinating needs. DC PLAN: See Goal. ROYCE Wallis
--- NOTE | 2021-01-28 15:03 | CASEMGMT ---
SW completed a PHQ 9 with patient and she scored a 1 which indicates minimal depression. Patient accepted a pamphlet on [facility] Stroke support group. SW also gave patient and her daughters a medical alert list and Medicaid application per their request. SW also gave patient pamphlets on help with Medicare Part D and help with other Medicare expenses. RN RADHA spoke with patient and daughters earlier and patient is interested in going to [facility] Inpatient Rehab or TCU. THERESA did make the referral and [place] will start the pre-cert for Inpatient Rehab. SW did let patient and her daughters know that it is possible that insurance could deny her to go to one or both units. They are aware and have a back up plan in place. Plan: [facility] 4th floor rehab vs [facility] TCU vs home with outpatient pending insurance approval. Joan ARCE
--- NOTE | 2021-01-28 15:27 | PCM.HOSP.N ---
Hospitalist Note Ms. Taylor is a 75-year-old white female who presented to the emergency department at [facility] on 01/28/2021 with left-sided weakness and dysarthria. Her NIH is have improved through the night but she has persistent left-sided weakness, dysarthria and mild facial droop. [facility] neurology stroke consult was performed the emergency department but she was unfortunately outside of the time window for TPA. A CT of her head was negative on admission. A CTA showed severe focal stenosis of the right vertebral artery but this does not explain her findings necessarily. An MRI was performed and showed multiple acute bilateral cerebellar infarcts with chronic small vessel ischemic changes. Her echocardiogram showed an EF of 75% with a mildly enlarged left atrium, moderate mitral annular calcification, calcified aortic root, and a ventricular systolic pressure of 30 mmHg. Of note there is also a 3.7 x 5.2 hepatic cyst noted at the time of echocardiogram. We allowed some permissive hypertension given her stroke. She has as needed blood pressure medications available with blood pressure ranges in place. We will initiate lisinopril 40 mg tomorrow to improve blood pressure control with a goal systolic of approximately 1 40-1 60 and slowly improve her blood pressure over time until we can get her in goal range. Check a.m. lipids. Continue baby aspirin, atorvastatin, and check a.m. hemoglobin A1c. She has been seen by physical therapy and Occupational Therapy and their recommendations are TCU versus acute rehab at discharge. Patient will need a 30-day event monitor as an outpatient at discharge. Anticipate discharge in the next 24 to 48 hours.
[2021-01-28] MEDS: Atorvastatin Calcium 40 MG Tablet PO (21:07)
[2021-01-28] MEDS: Latanoprost 0.005% 1 Bottle 1 DRP EACH EYE (21:08)
[2021-01-29] VITALS (10 sets, daily range): BP systolic 119–186; BP diastolic 57–91; PULSE 53–66; RESP 16–18; TEMP 36.5–36.6; O2SAT 95–97; BMI 29.9
[2021-01-29 06:23] LABS: Absolute Lymphocyte Count 3.69 X10^3/uL (0.83-4.51); Basophil# 0.06 X10^3/uL; Basophil% 0.7 % (0-1); Eosinophil# 0.19 X10^3/uL; Eosinophils% 2.2 % (0-5); Hematocrit 40.3 % (37-47); Hemoglobin 13.5 g/dL (12.0-15.0); Lymphocyte # 3.69 X10^3/ul (0.83-4.51); Lymphocyte % 43.7 % (19-41); Mean Corp Hgb Conc 33.5 g/dL (32-36); Mean Corpuscular Hgb 30.1 pg (27.0-32.0); Mean Corpuscular Volume 89.8 fL (81-99); Mean Platelet Vol. 11.1 fl (6.2-12.0); Monocyte% 5.9 % (0-10); NRBC Flagged by Analyzer 0 % (0-5); Neutrophil % 47.4 % (47-70); Platelet Count 195 K/mm3 (150-450); RBC Distribution Width CV 13.6 % (11.6-14.6); Red Blood Count 4.49 M/mm3 (4.2-5.4); White Blood Count 8.5 K/mm3 (4.4-11.0)
[2021-01-29 07:08] LABS: AST(SGOT) 12 U/L (15-37); Alanine Aminotransfer ALT/SGPT 17 U/L (13-56); Albumin, Serum 3.1 g/dL (3.2-5.0); Alkaline Phosphatase 71 U/L (45-117); Anion Gap 7 (5-15); BUN 16 mg/dL (7-18); BUN/Creat Ratio 18.7 RATIO (10-20); Calcium,Total 8.7 mg/dL (8.5-10.1); Chloride 109 mmol/L (98-107); Cholesterol 211 mg/dL (200); Creatinine, Serum 0.85 mg/dL (0.55-1.02); EST Glomerular Filtration Rate 69 mL/min (>60); Est Glom Filt Rate - Afr Amer 83 mL/min (>60); Estimated Creatinine Clearance 50.67 ml/min; Globulin 3.2 g/dL (2.2-4.2); Glucose 121 mg/dL (74-106); High Density Lipoprotein 35 mg/dL; Potassium 3.8 mmol/L (3.5-5.1); Protein, Total 6.3 g/dL (6.4-8.2); Sodium Level 141 mmol/L (136-145); Thyroid Stim Hormone (TSH) 2.16 uIU/mL (0.358-3.74); Triglycerides 200 mg/dL; Very Low Density Lipoprotein 40 mg/dL (5-40)
[2021-01-29 08:38] LABS: Hemoglobin A1c 5.8 % (3.8-5.6)
[2021-01-29] MEDS: Aspirin 81 MG TAB.CHEW PO (09:31)
[2021-01-29] MEDS: Enoxaparin 40 MG/0.4 ML Syringe SC (09:31)
[2021-01-29] MEDS: Timolol 0.5% 5ML OPTH.BTL 1 DRP EACH EYE (09:31)
[2021-01-29] MEDS: Lisinopril 40 MG Tablet PO (09:33)
--- NOTE | 2021-01-29 10:27 | CASEMGMT ---
Physician spoke with patient this am and she wants to go home. Patient is saying she did not know that it meant she would have to stay at [facility]. She is going home. SW met with patient. She told SW she did not know she would have to stay over there. She said she thought she would come and go. SW asked her if her daughters were thinking that as well. She said she thinks so. Her daughter Raya will be in today around 2-230 and we can talk about to make sure they are available to support her at home. She was in agreement with this. SW notified physician. Joan Chinchilla TEA ROOM MANAGER YAZMIN
--- NOTE | 2021-01-29 12:53 | CASEMGMT ---
Patient's daughter came in on her lunch hour. SW, patient, and her daughter discussed a plan. Patient's daughter was in communication with her siblings. They felt if physician recommended going somewhere they would prefer that. However, since patient is not in agreement with this they would be able to manage caring for her at home. She will likely go stay with her daughter Raya. Raya works at the school for about 3 hours and the school is 2 min away. That would be the only time she may be alone. They said if that is a problem they can get someone to be with her. SW told them SW will ask physician about this. Patient wants outpatient therapy at [facility]. SW will notify physician and get an order for outpatient therapy signed. Plan: d/c home with outpatient therapy at [facility] and support from children. Joan ARCE
--- NOTE | 2021-01-29 13:50 | CASEMGMT ---
SW received a phone call from [place] and patient was approved for Inpatient Rehab. THERESA spoke with patient and let her know that her insurance approved her to go to the rehab unit. She said she is still going home. Joan ARCE
--- NOTE | 2021-01-29 15:04 | CASEMGMT ---
THERESA faxed the outpatient therapy order to [facility]. THERESA then gave the order to patient and her daughter and let them know someone should call them to set up an appt. Plan: d/c home with outpatient therapy at [facility]. Joan ARCE
--- NOTE | 2021-01-29 15:05 | PCM.DC.SUM ---
Providers Date of Admission: 01/28/21 Primary Care Physician: No Primary Care Phys Reason For Visit: ACUTE CVA Diagnosis Discharge Diagnosis (1) Acute CVA (cerebrovascular accident): Status: Acute Code(s): I63.9 - Cerebral infarction, unspecified Medications at Discharge Home Medications latanoprost 1 drp EACH EYE QHS 01/28/21 timolol maleate 1 drp EACH EYE DAILY 01/28/21 amlodipine [Norvasc] 10 mg PO DAILY #30 tab 01/29/21 aspirin 81 mg PO DAILY@0800 #30 tab 01/29/21 atorvastatin 40 mg PO QHS #30 tab 01/29/21 lisinopril 40 mg PO DAILY #30 tab 01/29/21 Hospital Course Operations None Procedures 2-D Echocardiogram and - (MRI brain) Summary of Care Provided Minutes Spent on Discharge: 43 Hospital Course: Mrs. Taylor is a 75-year-old white female presented to the emergency department at [facility] on 01/28/2021 with dysarthria, left-sided facial droop, and left-sided weakness. Upon presentation she noted that at approximately 1830 the evening prior the patient had seemed very tired and off compared to her normal. She evidently had some alcohol that evening and the daughter attributed her changes to that. Upon awakening early on the morning of admission she had difficulty dialing the phone and had altered speech with left-sided weakness prompting a call to the EMS. Her ED initial NIH was 5 for facial palsy, altered speech, left upper extremity deficit and left lower extremity deficit as well as dysarthria. The patient does not follow-up for regular medical care. She has a history of tobacco abuse. The [facility] teleneurology stroke unit was called and evaluation was performed. Her preliminary CT showed no acute findings. A CT of her head and neck showed an absent P2 segment of the posterior cerebral arteries bilaterally, a P2 segment supplied by a patent posterior communicating artery bilaterally a diminutive left vertebral artery and a focal stenotic area that was severe in the intracranial segment of the right vertebral artery with no other evidence of hemodynamically significant arterial changes in the head or neck. Her EKG was sinus rhythm and she was monitored on telemetry throughout her hospitalization with stable normal sinus rhythm. An echocardiogram was performed on the a.m. of 01/28/2021 and showed an EF of 75%, mild left atrial enlargement, moderate mitral annular calcification, a calcified aortic root, right ventricular systolic pressure of 30 mmHg and no diastolic dysfunction. Her echo did comment on a potential renal cysts and recommended further evaluation for which an abdominal ultrasound was done and it was noted to be a solitary kidney cyst that was 2.9 x 1.9 x 1.9 cm. An MRI of her brain was performed and showed multiple small bilateral cerebellar infarcts with chronic small vessel ischemic changes. She was evaluated by neurology as an inpatient and recommended to be continued on aspirin without the addition of Plavix at this time, address risk factor modification with high-dose statin, pressure control, and be evaluated by therapy services. PT and OT recommended further inpatient rehab but the patient declined and desired to go home with outpatient therapy follow-up. Her blood pressure was elevated throughout her stay. We initially allowed for permissive hypercapnia. The day following her event she was initiated on lisinopril 40 mg daily. We will start Norvasc 10 mg daily on 01/30/2021 with her goal blood pressure being less than 130/70. We did discuss with her the need for slow reduction in blood pressure to allow for continued perfusion. Her total cholesterol was 211 with an LDL of 136, and HDL of 35 and a triglyceride level of 200. Goal LDL will be less than 100. We recommended she follow-up and get an ambulatory blood pressure within the next 48 to 72 hours. She was given referral for establishing with a primary care physician and recommended neurology follow-up in the next month. Discharge diagnoses: Acute stroke Right vertebral artery stenosis Hypertension Solitary right kidney cyst Hyperlipidemia Left-sided weakness History of tobacco abuse Physical Exam Const alert, oriented x3 and no apparent distress Constitutional Narrative: Overweight elderly white female sitting the chair, appears comfortable, nontoxic General Appearance: cooperative, comfortable, well kempt and well developed Orientation / Consciousness: awake HEENT normocephalic, head/scalp atraumatic, hearing grossly normal bilaterally and moist oral mucous membranes HEENT Narrative: Poor dentition, Mallampati 2, no thrush Eyes PERRL, EOMs intact bilaterally and conjunctivae normal Neck no lymphadenopathy, supple, no JVD and no carotid bruits Resp normal respiratory effort, no retractions, no use of accessory muscles and clear to auscultation bilaterally Resp Narrative: Diffusely diminished but clear Cardio regular rate, regular rhythm, S1 normal heart sound, S2 normal heart sound, no murmurs, no rub, no gallops, no clicks and no JVD GI normal to inspection, nondistended, normoactive bowel sounds, soft to palpation, non-tender and non-distended Extremity no clubbing, cyanosis or edema Skin no rashes or lesions noted, no wounds, skin turgor normal and no jaundice Neuro oriented x3 and CN's II-XII intact bilaterally Neuro Narrative: Mild weakness left upper and lower extremity-significantly improved since presentation, facial droop resolved Sensorium / Orientation: awake and alert Psych affect normal Weight / BMI Weight Weight: 80.1 kg Body Mass Index (BMI) 29.9 ABG / Lab / Microbiology Data Result Diagrams: 01/29/21 06:05 01/29/21 06:05 Laboratory: Laboratory Results - last 24 hr 01/29/21 06:05: WBC 8.5, RBC 4.49, Hgb 13.5, Hct 40.3, MCV 89.8, MCH 30.1, MCHC 33.5, RDW Std Deviation 45.0 H, RDW Coeff of Robi 13.6, Plt Count 195, MPV 11.1, Immature Gran % (Auto) 0.100, Neut % (Auto) 47.4, Lymph % (Auto) 43.7 H, [place] % (Auto) 5.9, Eos % (Auto) 2.2, Baso % (Auto) 0.7, Absolute Neuts (auto) 4.0, Absolute Lymphs (auto) 3.69, Nucleated RBC % 0 01/29/21 06:05: Sodium 141, Potassium 3.8, Chloride 109 H, Carbon Dioxide 25.0, Anion Gap 7, BUN 16, Creatinine 0.85, Estim Creat Clear Calc 50.67, Est GFR (MDRD) Af Amer 83, Est GFR (MDRD) Non-Af 69, BUN/Creatinine Ratio 18.7, Glucose 121 H, Calcium 8.7, Total Bilirubin 0.50, AST 12 L, ALT 17, Alkaline Phosphatase 71, Total Protein 6.3 L, Albumin 3.1 L, Globulin 3.2, Albumin/Globulin Ratio 1.0, Triglycerides 200 H, Cholesterol 211 H, LDL Cholesterol 136 H, VLDL Cholesterol 40, HDL Cholesterol 35 L, TSH 2.16 01/29/21 06:05: Hemoglobin A1c 5.8 H Microbiology: Microbiology 01/28/21 04:52 Mucosa - Nose SARS-CoV-2 Antigen (Rapid) - Final Radiography Diagnostic Testing: Radiology Impression Abdomen Ultrasound 01/29/21 15:32 IMPRESSION: Hepatic steatosis. Cholelithiasis. 2.9 cm right renal cyst. at 0948 Reported and signed by: Terri Trinidad MD Electronically Signed: Terri Trinidad MD at 9:47 EDT Tel , Service support , D/C Instructions Discharge Diet: Low fat / Low cholesterol and 2000 mg Sodium Diet Discharge Activity: Return to Normal Activity Meaningful Use Info Meaningful Use Diagnoses (Choose all that apply): None applicable CVA Therapy Assessed for PT,OT and/or ST?: Yes Ischemic Stroke Antithrombotic order at d/c?: Yes Reason antithrombotic not ordered: Treatment not Indicated Dx of Atrial fib/flutter?: No Anticoagulant at discharge?: No Reason anticoagulant not ordered: Treatment not Indicated Statins at discharge?: Yes Primary Dx Acute Ischemic CVA?: Yes IV tPA ordered during stay?: No Reason IV t-PA not ordered: Treatment not Indicated Discharge Plan Admission Admit Date/Time: 01/28/21 05:20 Primary Reason for Your Visit: Stroke Attending Provider: Agustina Eisenberg Primary Care Provider: Care Physician,No Primary Instructions Additional Instructions / Restrictions: Patient Problems: Altered Health Status related to Hospitalization Patient Goals: *Optimal Level of Health *Keep Appointments *Medication Compliance *Remain SafeHave blood pressure checked at a local pharmacy on Tuesday or Tuesday with a goal blood pressure of less than 160/80 overall goal will be less than 130/70 but we need to bring down your blood pressure slowly Highly recommend tobacco cessation Discharge Orders/Prescriptions Prescriptions: New atorvastatin 40 mg Tablet 40 mg PO QHS Qty: 30 RF: 0 aspirin 81 mg Tablet,Chewable 81 mg PO DAILY@0800 Qty: 30 RF: 11 lisinopril 40 mg Tablet 40 mg PO DAILY Qty: 30 RF: 1 amlodipine [Norvasc] 10 mg tablet 10 mg PO DAILY Qty: 30 RF: 1 Continued latanoprost 0.005 % drops 1 drp EACH EYE QHS RF: 0 timolol maleate 0.5 % drops 1 drp EACH EYE DAILY RF: 0 Other Ambulatory Orders: 30-Day Event Recorder (Routine) Location: None Selected Ordered By: Dr. Agustina Eisenberg Referrals / Follow Up: Elie Dubois MD [STAFF PHYSICIAN] - In 1 Week Neo Yousif MD [STAFF PHYSICIAN] - Within 1 Month Care Physician,No Primary [Primary Care Provider] - Disposition Disposition (needs filled in before D/C Order can be placed): Home, Self Care Charges/Coding Visit Charges Inpatient E&M: 01144 Disch Hosp
--- NOTE | 2021-01-29 15:32 | US_ITS ---
HISTORY: possible liver cyst seen on echo. TECHNIQUE: Hicks scale and color Doppler imaging was performed of the right upper quadrant. Number of images including paperwork: 122. COMPARISON: None. FINDINGS: LIVER: 14.4 cm in length. Echogenic without focal lesion. No intrahepatic biliary ductal dilation. CBD: 5 mm in diameter, nondilated. GALLBLADDER: Multiple gallstones. 2-3 mm wall thickness, within normal limits. No pericholecystic fluid. Negative sonographic Sandoval sign reported. PANCREAS: Visualized proximal portion unremarkable. RIGHT KIDNEY: 10.6 cm in length without hydronephrosis. 2.9 x 1.9 x 1.9 cm cyst. US/Abdomen Limited IMPRESSION: Hepatic steatosis. Cholelithiasis. 2.9 cm right renal cyst. at 0948 Reported and signed by: Terri Trinidad MD Electronically Signed: Terri Trinidad MD at 9:47 EDT Tel , Service support ,
--- NOTE | 2021-01-29 15:37 | PCM.DC ---
Discharge Instructions Diet Discharge Diet: Low fat / Low cholesterol and 2000 mg Sodium Diet Follow Up Care Test Results: Test results from this visit will be discussed in further detail at your follow-up appointment, if applicable. Discharge Plan Admission Admit Date/Time: 01/28/21 05:20 Primary Reason for Your Visit: Stroke Attending Provider: Agustina Eisenberg Primary Care Provider: Care Physician,No Primary Instructions Additional Instructions / Restrictions: Patient Problems: Altered Health Status related to Hospitalization Patient Goals: *Optimal Level of Health *Keep Appointments *Medication Compliance *Remain SafeHave blood pressure checked at a local pharmacy on Tuesday or Tuesday with a goal blood pressure of less than 160/80 overall goal will be less than 130/70 but we need to bring down your blood pressure slowly Highly recommend tobacco cessation Discharge Orders/Prescriptions Prescriptions: New atorvastatin 40 mg Tablet 40 mg PO QHS Qty: 30 RF: 0 aspirin 81 mg Tablet,Chewable 81 mg PO DAILY@0800 Qty: 30 RF: 11 lisinopril 40 mg Tablet 40 mg PO DAILY Qty: 30 RF: 1 amlodipine [Norvasc] 10 mg tablet 10 mg PO DAILY Qty: 30 RF: 1 Continued latanoprost 0.005 % drops 1 drp EACH EYE QHS RF: 0 timolol maleate 0.5 % drops 1 drp EACH EYE DAILY RF: 0 Other Ambulatory Orders: 30-Day Event Recorder (Routine) Location: None Selected Ordered By: Dr. Agustina Eisenberg Referrals / Follow Up: Elie Dubois MD [STAFF PHYSICIAN] - In 1 Week Neo Yousif MD [STAFF PHYSICIAN] - Within 1 Month Care Physician,No Primary [Primary Care Provider] - Disposition Disposition (needs filled in before D/C Order can be placed): Home, Self Care
--- NOTE | 2021-01-29 15:40 | PHA.DC.MC ---
Pharmacy Service has performed discharge medication reconciliation and counseling for this patient. The patient was counseled on the following discharge medications and changes in medications for homegoing were reviewed. 1. AMLODIPINE 2. LISINOPRIL 3. ATORVASTATIN 4. ASPIRIN The Reason for Use, instructions for use, and potential side effects were reviewed for all new medications. The patient's questions regarding all of their medications were answered. The patient was able to verbally demonstrate an understanding of their discharge medications. *NOTE: Patient requested prescriptions be sent from [facility] to [facility] in [place]. Called [facility] at this time to have prescriptions transferred from [facility] per patient request Home Medications latanoprost 1 drp EACH EYE QHS 01/28/21 timolol maleate 1 drp EACH EYE DAILY 01/28/21 amlodipine [Norvasc] 10 mg PO DAILY #30 tab 01/29/21 aspirin 81 mg PO DAILY@0800 #30 tab 01/29/21 atorvastatin 40 mg PO QHS #30 tab 01/29/21 lisinopril 40 mg PO DAILY #30 tab 01/29/21 The patient's discharge medication list was reviewed for discrepancies and discrepancies were resolved.
== END 2021-01-29 16:40 | disposition home or self-care (01) | DRG 65 ==
LOC: ED 05:15 → PCU 05:37
PROVIDERS: Admitting Provider Family Medicine; Emergency Provider Emergency Medicine; Visit Provider Internal Medicine
DX: I63.9 Cerebral infarction, unspecified (principal); G81.94 Hemiplegia, unspecified affecting left nondominant side; R47.1 Dysarthria and anarthria; R29.810 Facial weakness; R47.81 Slurred speech; R29.705 NIHSS score 5; I12.9 Hypertensive chronic kidney disease with stage 1 through stage 4 chronic kidney disease, or unspecified chronic kidney disease; N18.2 Chronic kidney disease, stage 2 (mild); N28.9 Disorder of kidney and ureter, unspecified; H40.9 Unspecified glaucoma; R73.9 Hyperglycemia, unspecified; E78.5 Hyperlipidemia, unspecified; N28.1 Cyst of kidney, acquired; M54.9 Dorsalgia, unspecified; G89.29 Other chronic pain; Z79.82 Long term (current) use of aspirin; Z79.899 Other long term (current) drug therapy; Z20.822 Contact with and (suspected) exposure to COVID-19; Z87.891 Personal history of nicotine dependence
CPT/HCPCS: 36415; 70450; 70496; 70498; 70551; 71045; 76705; 80048; 80053; 80061; 82077; 83036; 83735; 84443; 84484; 85025; 85610; 85730; 87426; 92610; 93005; 93306; 94762; 97110; 97163; 97166; 97530; 97535; 99285; J7030; Q9967; A4216

== ENCOUNTER → 2021-02-19 11:21 | Outpatient (CLI) | payer MEDICARE, SELFPAY ==
[2021-02-19 13:15] LABS: Anion Gap 6 (5-15); BUN 14 mg/dL (7-18); BUN/Creat Ratio 13.9 RATIO (10-20); Calcium,Total 9.8 mg/dL (8.5-10.1); Chloride 104 mmol/L (98-107); Creatinine, Serum 1.01 mg/dL (0.55-1.02); EST Glomerular Filtration Rate 57 mL/min (>60); Est Glom Filt Rate - Afr Amer 68 mL/min (>60); Glucose 151 mg/dL (74-106); Potassium 4.1 mmol/L (3.5-5.1); Sodium Level 140 mmol/L (136-145)
== END ==
LOC: BIMLAB 11:23
PROVIDERS: PCP Internal Medicine; Referring Provider Nurse Practitioner Family; Visit Provider Nurse Practitioner Family
DX: I10 Essential (primary) hypertension (principal); E78.5 Hyperlipidemia, unspecified; Z86.73 Personal history of transient ischemic attack (TIA), and cerebral infarction without residual deficits
CPT/HCPCS: 36415; 80048

== ENCOUNTER 2021-04-17 19:37 | Emergency (ER) | payer MEDICARE, SELFPAY ==
[2021-04-17 19:38] VITALS: BP 181/74; PULSE 77; RESP 18; TEMP 36.1; O2SAT 100; BMI 27.4
--- NOTE | 2021-04-17 19:51 | EKG12_ITS ---
Test Reason : DYSRHYTHMIA Blood Pressure : / mmHG Vent. Rate : 076 BPM Atrial Rate : 076 BPM P-R Int : 150 ms QRS Dur : 088 ms QT Int : 382 ms P-R-T Axes : 032 023 -73 degrees QTc Int : 429 ms Sinus rhythm with occasional Premature ventricular complexes ST & T wave abnormality, consider inferior ischemia Abnormal ECG Confirmed by CHERYL FELIX, ALEX ([id number]), tape editor OSCAR BUTCHER ([id number]) on 04/20/2021 11:43:49 AM Referred By: Confirmed By:ALEX LUNA MD
--- NOTE | 2021-04-17 19:52 | EDS_ITS ---
HPI History of Present Illness Chief Complaint: Shortness of Breath Informant: patient Narrative Narrative: 75-year-old female arriving via private vehicle to the emergency room with chief complaint of dyspnea. She states she woke early this morning short of breath and panicked because of the shortness of breath. This is continued throughout the day. The past 2 hours family has been driving her around trying to get her to relax and see if that can help her breathing which has not so they decided to come to emergency. She denies any fever or cough. She denies any chest pain. No DVT PE risk factors that are known. [facility] Medical History Acute CVA (cerebrovascular accident) Arthritis Back pain Carpal tunnel syndrome on both sides Former tobacco use Glaucoma Heel spur Hyperlipemia Hypertension Home Medications latanoprost 1 drp EACH EYE QHS 01/28/21 [History Last Taken Unknown] timolol maleate 1 drp EACH EYE DAILY 01/28/21 [History Last Taken Unknown] aspirin 81 mg PO DAILY@0800 #30 tab 01/29/21 [Rx Last Taken Unknown] amlodipine 10 mg tablet 10 mg PO DAILY #90 tab 02/05/21 [Rx Last Taken Unknown] atorvastatin 40 mg tablet 40 mg PO QHS #90 tab 02/05/21 [Rx Last Taken Unknown] lisinopril 40 mg tablet 40 mg PO DAILY #90 tab 02/05/21 [Rx Last Taken Unknown] hydrochlorothiazide 12.5 mg tablet 12.5 mg PO QAM #30 tab 04/07/21 [Rx Last Taken Unknown] hydroxyzine pamoate [Vistaril] 25 mg PO BID PRN #10 cap 04/17/21 [Rx Last Taken Unknown] Allergy/AdvReac Type Severity Reaction Status Date / Time No Known Allergies Allergy Verified 04/17/21 19:40 Family History Mother CVA (cerebral vascular accident) Hypertension Father CVA (cerebral vascular accident) Hypertension Brother Diabetes CVA (cerebral vascular accident) Surgical History History of bunionectomy of both great toes S/p bilateral carpal tunnel release Social History household members: none Smoking Status: Never smoker how long ago did patient quit smoking: Quit remotely, primarily social smoker. alcohol intake: current alcohol intake frequency: a few times a week Alcohol type: beer and wine substance use type: does not use what type of physical activity do you participate in: walking ROS ROS ED Constitutional Constitutional ED: Denies chills, fever(s) or weight loss Eyes Eyes: Denies change in vision or diplopia ENT ENT ED: Reports rhinorrhea; Denies ear pain or sore throat Cardiovascular Cardiovascular: Denies chest pain, orthopnea, palpitations or racing heartbeat Respiratory/Chest Respiratory/Chest: Reports dyspnea and dyspnea on exertion; Denies cough or orthopnea Gastrointestinal Gastrointestinal: Denies abdominal pain, diarrhea, nausea or vomiting Genitourinary Genitourinary ED: Denies dysuria, hematuria or urinary frequency Musculoskeletal Musculoskeletal: Denies arthralgias or myalgias Integumentary Denies abscess or rash Neurologic Neurologic: Denies headache(s) or weakness Psychiatric Psychiatric: Denies anxiety, depression, suicidal ideation or suicidal thoughts Endocrine Endocrinology: Denies polydipsia, polyphagia or polyuria Allergic/Immunologic Allergic/Immunologic ED: Denies mouth swelling, tongue swelling or urticaria EXAM Physical Exam Const Vital Signs: 04/17/21 19:38 04/17/21 20:19 Temperature 97 F L Temperature Source Temporal Pulse Rate 77 Respiratory Rate 18 Respiratory Effort Normal Non-Labored Respiratory Depth Normal Respiratory Pattern Normal Blood Pressure 181/74 H Blood Pressure Mean 109 Pulse Ox 100 Oxygen Delivery Method Room Air Positive well nourished, well developed and obese General Appearance ED: well developed and NAD Nutritional Appearance: obese HEENT Reports normocephalic, head/scalp atraumatic, TM's clear and moist mucous membranes atraumatic Tympanic Membrane ED: Yes TM's clear Eyes PERRL and EOMs intact bilaterally Neck no lymphadenopathy, supple and no JVD Resp normal respiratory effort and clear to auscultation bilaterally Cardio regular rate, regular rhythm and no murmurs GI normal to inspection, nondistended, normoactive bowel sounds and non-tender Palpation: soft Back/Spine no CVA tenderness and normal ROM Extremity normal to inspection General Extremety ED: Negative for edema General Extremity: Negative for edema Neuro oriented x3 and CN's II-XII intact bilaterally Sensorium / Orientation: alert Motor Exam: strength 5/5 throughout Psych mental status grossly normal Mood & Affect: Negative for depressed or tearful Skin no rashes or lesions noted and no wounds Rashes: no rashes MDM MDM MDM Narrative Medical decision making narrative: CBC with white count 11.5 otherwise negative. BMP glucose 159 potassium 3.4 troponin is 10. My impression of the chest x-ray is no acute process. Patient has remained in a normal sinus rhythm here. She received 1/2 mg of Ativan. Repeat examination finds the patient to be resting comfortably. 16 respirations per minute the pulse ox about 97%. She ambulates without difficulty. I think this is most likely anxiety family would agree to this patient would like something to take for when this happens again. I can prescribe her Vistaril and advised her that she should talk about her anxiety and potential medications to help control it with her doctor at her next appointment which is upcoming Lab Data Attestation: I reviewed the patient's lab results. Labs: Laboratory Results - last 24 hr 04/17/21 04/17/21 20:00 20:00 WBC 11.5 H RBC 5.08 Hgb 14.8 Hct 44.4 MCV 87.4 MCH 29.1 MCHC 33.3 RDW Std Deviation 41.9 RDW Coeff of Robi 12.9 Plt Count 324 MPV 11.4 Immature Gran % (Auto) 0.200 Neut % (Auto) 45.6 L Lymph % (Auto) 40.6 [place] % (Auto) 7.6 Eos % (Auto) 5.1 H Baso % (Auto) 0.9 Absolute Neuts (auto) 5.3 Absolute Lymphs (auto) 4.68 H Nucleated RBC % 0 Sodium 140 Potassium 3.4 L Chloride 106 Carbon Dioxide 27.0 Anion Gap 7 BUN 14 Creatinine 1.02 Estim Creat Clear Calc 42.22 Est GFR (MDRD) Af Amer 68 Est GFR (MDRD) Non-Af 56 L BUN/Creatinine Ratio 13.7 Glucose 159 H Calcium 10.2 H Troponin I High Sens 10 Radiography Diagnostic Testing: Clinical Impression(s) from Imaging Studies Chest X-Ray 04/17/21 20:15 IMPRESSION: Questionable trace left pleural effusion. No other acute findings. Electronically Signed: Prashanth Patterson MD at 20:37 EST Tel , Service support , EKG Initial EKG: Attestation: I personally reviewed and interpreted this EKG as follows: Comments: Sinus rhythm with a ventricular rate of 76 bpm noted PVC Discharge Plan Triage Chief Complaint: Shortness of Breath ED Provider: Zafar Chester Dx/Rx/DC Orders Clinical Impression: Acute dyspnea, Anxiety Instructions: ED Anxiety Reaction, ED Dyspnea Prescriptions: New hydroxyzine pamoate [Vistaril] 25 mg capsule 25 mg PO BID PRN (Reason: anxiety) Qty: 10 RF: 0 No Action amlodipine [Norvasc] 10 mg tablet 10 mg PO DAILY Qty: 90 RF: 3 atorvastatin 40 mg tablet 40 mg PO QHS Qty: 90 RF: 3 lisinopril 40 mg tablet 40 mg PO DAILY Qty: 90 RF: 3 latanoprost 0.005 % drops 1 drp EACH EYE QHS RF: 0 timolol maleate 0.5 % drops 1 drp EACH EYE DAILY RF: 0 aspirin 81 mg Tablet,Chewable 81 mg PO DAILY@0800 Qty: 30 RF: 11 hydrochlorothiazide 12.5 mg tablet 12.5 mg PO QAM Qty: 30 RF: 1 Hold Instructions: Home Medication placed on hold at Doctor's office Primary Care Provider: Elie Dubois Referrals: Elie Dubois MD [Primary Care Provider] - Keep Tavia appointment Activity Restrictions/Additional Instructions: Please discuss your anxiety and dyspnea at your upcoming doctor's appointment Disposition Disposition: Home, Self Care
[2021-04-17 20:08] LABS: Absolute Lymphocyte Count 4.68 X10^3/uL (0.83-4.51); Absolute Neutrophil Count 5.3 X10^3/uL (2.0-7.7); Basophil% 0.9 % (0-1); Eosinophil# 0.59 X10^3/uL; Eosinophils% 5.1 % (0-5); Hematocrit 44.4 % (37-47); Hemoglobin 14.8 g/dL (12.0-15.0); Lymphocyte # 4.68 X10^3/ul (0.83-4.51); Lymphocyte % 40.6 % (19-41); Mean Corp Hgb Conc 33.3 g/dL (32-36); Mean Corpuscular Hgb 29.1 pg (27.0-32.0); Mean Corpuscular Volume 87.4 fL (81-99); Mean Platelet Vol. 11.4 fl (6.2-12.0); Monocyte# 0.88 X10^3/uL; Monocyte% 7.6 % (0-10); NRBC Flagged by Analyzer 0 % (0-5); Neutrophil # 5.26 X10^3/uL (2.7-7.7); Neutrophil % 45.6 % (47-70); Platelet Count 324 K/mm3 (150-450); RBC Distribution Width CV 12.9 % (11.6-14.6); RBC Distribution Width SD 41.9 fl (35.1-43.9); Red Blood Count 5.08 M/mm3 (4.2-5.4); White Blood Count 11.5 K/mm3 (4.4-11.0)
[2021-04-17] MEDS: LORazepam 2 MG/ML Syringe 0.5 MG IV (20:13)
--- NOTE | 2021-04-17 20:15 | RAD_ITS ---
INDICATION: dyspnea EXAMINATION/TECHNIQUE: X-RAY - XR Chest 1 View COMPARISON: 01/28/2021. FINDINGS: The lungs are clear. The cardiomediastinal silhouette is unremarkable. Questionable trace left pleural effusion. No pneumothorax. Degenerative changes of the thoracic spine. RAD/Chest 1 View (Portable) IMPRESSION: Questionable trace left pleural effusion. No other acute findings. Electronically Signed: Prashanth Patterson MD at 20:37 EST Tel , Service support ,
[2021-04-17 20:19] VITALS: O2SAT 97
[2021-04-17 20:27] LABS: Anion Gap 7 (5-15); BUN 14 mg/dL (7-18); BUN/Creat Ratio 13.7 RATIO (10-20); Calcium,Total 10.2 mg/dL (8.5-10.1); Chloride 106 mmol/L (98-107); Creatinine, Serum 1.02 mg/dL (0.55-1.02); EST Glomerular Filtration Rate 56 mL/min (>60); Est Glom Filt Rate - Afr Amer 68 mL/min (>60); Estimated Creatinine Clearance 42.22 ml/min; Glucose 159 mg/dL (74-106); Potassium 3.4 mmol/L (3.5-5.1); Sodium Level 140 mmol/L (136-145); Troponin-I HS 10 pg/mL (3.0-54.0)
[2021-04-17 21:02] VITALS: O2SAT 96
[2021-04-17 21:21] VITALS: BP 131/73; PULSE 76; RESP 18; O2SAT 95
== END 2021-04-17 21:34 | disposition home or self-care (01) ==
PROVIDERS: Emergency Provider Emergency Medicine; PCP Internal Medicine
DX: R06.00 Dyspnea, unspecified (principal); F41.9 Anxiety disorder, unspecified; Z20.822 Contact with and (suspected) exposure to COVID-19; I10 Essential (primary) hypertension; E78.5 Hyperlipidemia, unspecified; H40.9 Unspecified glaucoma; M19.90 Unspecified osteoarthritis, unspecified site; E66.9 Obesity, unspecified; Z79.82 Long term (current) use of aspirin; Z79.899 Other long term (current) drug therapy; Z86.73 Personal history of transient ischemic attack (TIA), and cerebral infarction without residual deficits
CPT/HCPCS: 71045; 80048; 84484; 85025; 87426; 93005; 96374; 99284; A4216

== ENCOUNTER → 2021-04-28 12:26 | Outpatient (CLI) | payer MEDICARE, SELFPAY ==
--- NOTE | 2021-04-28 13:00 | MRI_ITS ---
We are attempting to reach an attending provider to discuss findings. An addendum with communication details will be sent when the communication is complete. STUDY: MRI BRAIN WITHOUT CONTRAST REASON FOR EXAM: Female, 75 years old. CEREBRAL INFARCTION TECHNIQUE: Standardized multiplanar fat and water weighted pulse sequences were obtained. COMPARISON: January 28, 2021 FINDINGS: There is mild cerebral atrophy with widening of the extra-axial spaces and ventricular dilatation. There are multiple white matter hyperintensities, distributed throughout the deep white matter tracts of the cerebral hemispheres, consistent with moderate chronic white matter ischemic changes. There has been interval evolution of the lacunar type infarcts of the bilateral cerebellar hemispheres. There are new since the prior examination chronic lacunar infarcts of the bilateral thalami. Multiple new pontine chronic lacunar infarcts are also noted. There is no extra-axial fluid accumulation. Normal sella turcica, pituitary gland, infundibular stalk, optic chiasm and hypothalamus. Normal tectal plate and pineal gland. MRI/Brain without Contrast IMPRESSION: No acute intracranial abnormality. Multiple posterior circulation chronic lacunar infarcts, some are new since the prior examination in January 2021 N.B. Nonstandard communication: Category 3 Electronically Signed: Regina Castellanos MD at 13:15 EST Tel , Service support ,
== END ==
PROVIDERS: PCP Internal Medicine; Referring Provider Psychiatry & Neurology Neurology; Visit Provider Psychiatry & Neurology Neurology
DX: Z86.73 Personal history of transient ischemic attack (TIA), and cerebral infarction without residual deficits (principal)
CPT/HCPCS: 70551

== ENCOUNTER 2021-06-15 15:00 | Outpatient (RCR) | payer MEDICARE, SELFPAY ==
--- NOTE | 2021-02-12 15:32 | HP.OTEVAL ---
Patient's Visit Information HENRI RICARDO is a 75 year old F, referred to Occupational Therapy by Dr. Agustina Eisenberg DO, with a diagnosis of CVA. Date of Evaluation: 02/12/21 Occupational Therapist: Rose Bundy OTR/Gena, CHT - Subjective This 75 year old female was seen for OT eval with dx of CVA. pt suffered stroke on 2020. Pt states she was in the hospital for about two days- pt states she was having difficulty with walking and talking- pt states prior to her stroke she was IND with ambulation. Pt lives in 1 story home with 1 entry step on her deck- pt has a tub shower combination- pt states her daughter did bring a shower chair but it is unable to fit in her shower. pt and pts dtr states she is able to mtg getting in and out of the shower- pt states she is ind. with dressing. - ADLs Comments: pt and pts family states pt is IND with dressing, supervision with bathing. pt has returned to doing laundry, cleaning dish, cooking- - ROM ROM Comments: pt demo BUE ROM WNL - Strength Shoulder: right/ left 5/5 Elbow: right/left 5/5 Contracting Officer: right 55# left 60# Lateral Pinch: right 12# left 10# Tripod Pinch: right 6# left 6# - Sensation Sensation Comments: pt denies - Stroke Specific Quality of Life Total SS-QOL Score: 187 - Quick DASH-Disab of Arm,Shoulder& Hand Quick DASH Score: 27.5000 - Rehabilitation General Assessment: pt demo good BUE strength no noted deficits between right and left UE. pt does not demo a need for skilled OT services at this time. pts concerns are with ambulation and balance. pt would also like to speech therapy. - Visit Plan General Plan: pt will continue with Physical therapy for balance and ambulation. this therapist will call to get order for speech therapy as this is a concern of pt. and pts dtrs. TEXT: Thank you for the opportunity to evaluate your patient. For Medicare and Medicare HMO plans, please review the plan of care and approve it. It will need to be FAXED BACK to us at [phone] for Medicare purposes. Please let me know if there are questions or concerns regarding this plan of care. Physician Signature: Date:
--- NOTE | 2021-02-16 11:17 | HP.PTEVAL_ITS ---
Patient's Visit Information HENRI RICARDO is a 75 year old F referred to Physical Therapy by Dr. Agustina Eisenberg DO with a diagnosis of CVA. Date of Evaluation: 02/16/21 Physical Therapist: Catracho Morris DPT - Visit Plan Frequency: 2x /Week Duration: 6 Weeks Plan: Start with BLE strengthening, L more than R. Balance training, gait progression with AD, with possibility of progression away from. - Subjective This 75 year old female was seen for PT kajal with dx of CVA. pt suffered stroke on 2020. Pt states she was in the hospital for about two days- pt states she was having difficulty with walking and talking- pt states prior to her stroke she was IND with ambulation. Pt lives in 1 story home with 1 entry step on her deck- pt has a tub shower combination- pt states her daughter did bring a shower chair but it is unable to fit in her shower. pt and pts dtr states she is able to mtg getting in and out of the shower. Pt. reports not being able to walk as well as previously and had been not having to use an AD. She is currently using FWW in community and rollator at home. Pt. denies pain. She is also reporting some difficulty with word finding. Pt. is hopeful to get back to all previously functional mobility in home and community. [ End ] - Objective POSTURE: Pt. has slight flexed posture in stance. Pt. has normal wt. shift, but has wide SUSHMA with occassional need to use AD to stabilize. PALPATION: No issues, no edema noted. NEURO: normal sensation and normal DTR of BLEs. Pt. is able to complete B hip ER/IR symmetrically. Pt. has good body awareness and spatial awareness. ROM: normal ROM throughout BLEs and lumbar spine. normal HS length bilat. MMT: RLE- 5-/5 throughout. LLE: ankle 4/5 throughout, knee 4/5 throughout, hip: flexion 4-/5, abd 4-/5, ext 4/5. Core strength poor. GAIT: Pt. ambulates well with FWW with SBA. Pt. has some difficulty with directional changes. Pt. has marked balance loss with gait without AD. Pt. lost balance and multiple occassions to L side with min A to correct balance, worse with directional changes. STAIRS: step to pattern with heavy use of BHRs. TUsec with FWW, 29sec with out AD with loss of balance with directional change. Celialiam hallman Fabiana: LLE stage 4. - Balance/Special Test Scores Functional Gait Assessment Score: 8 % Disability: 73.3400 CATSIB Score (Max score 120 seconds): 44 Tinetti Balance Score: 7 Tinetti Gait Score: 5 Tinetti Balance & Gait Score: 12 Lower Extremity Functional Score: 27 - Goals Goal 1:: LTG: Pt. to be I with HEP for balance and LE strengthening. Goal Time Frame: 4-6 Weeks Goal 2:: STG: Pt. to ambulate with FWW QUITA without LOB for 300'+. Goal Time Frame: 2 Weeks Goal 3:: LTG: Pt. to be I with gait with out use of AD without LOB. Goal Time Frame: 4-6 Weeks Goal 4:: LTG: Pt. to complete 6 MWT without AD with distance of at least 900'. Goal Time Frame: 4-6 Weeks Goal 5:: LTG: Pt. to have increased BLE strength to at least 5-/5 throughout. Goal Time Frame: 4-6 Weeks Goal 6:: LTG: Pt. to complete 30 sec sit to stand rep test with score of at least 11 reps - Rehabilitation Potential Physical Therapy Diagnosis: Pt. has signs and symptoms consistent with acute CVA with subsequent difficulty with gait, balance and LLE weakness. Pt. had marked imbalance with testing this date with multiple occurances of LOS when AD is not present. Due to this I would recommend that this patient come to PT with focus on LLE strengthening, balance activities and gait progression to reduce risk for future falls. Rehabilitation Potential: Good - Anticipated Interventions Patient/Client Instruction: Educate patient on: Condition, Plan of Care, Risk Factors, Benefits of Fitness Program For the Purpose of:: To improve decision making, To facilitate caregiver knowledge, To improve self management, To prevent re-injury, To improve ability to perform tasks related to life management Therapeutic Exercise to Include: Strength training, Power training, Balance training, Coordination, Body mechanics, Postural training, Gait and locomotor training, Dynamic Lumbar Stabilization For the Purpose of:: To decrease pain, To decrease swelling/inflammation, To increase ROM, To improve nutrient delivery to tissue, To increase oxygenation perfusion, To improve muscle performance and motor function, To decrease soft tissue restriction, To increase flexibility/ROM, To improve balance Thank you for the opportunity to evaluate your patient. For Medicare and Medicare HMO plans, please review the plan of care and approve it. It will need to be FAXED BACK to us at [phone] for Medicare purposes. For Medicare only, by signing this I certify the plan of care. Please let me know if there are questions or concerns regarding this plan of care. Physician Signature: Date:
--- NOTE | 2021-04-02 11:51 | HP.PTREVAL ---
Dr. Agustina Eisenberg, DO, It has been my pleasure to treat HENRI RICARDO over the last 12 visits for CVA. Please see the progress note below for an update on the physical therapy plan of care! Subjective: Pt states she needs to continue to strengthen her left side. He saw her neurologist who wants to do another MRI to make sure nothing has changed. She and her family report that she has had some decreased control of her L foot and weakness in her L UE. She denies pain today, but reports high levels of fatigue. Objective/Function: Pt dynamic balance is improving, she is able to step over hurdles with less kicking of the hurdles. During gait there is improved toe off, allowing less toe drag. Pt still has difficulty with reciprocal gait over hurdles, due to loss of balance. GAIT: Pt. ambulated 350' during 6 MWT with FWW, but needs frequent VCing to stay with in SUSHMA of AD and to pay attention to walking. She does tend to be more unstable when trying to talk to others while she is walking. He is able to ambulate without AD, but is very unsafe at this point in time, with decreased L foot clearance that worsens as she tires. Repeated sit to stand test 30sec: 7reps. MMT: RLE 5-/5 throughout. LLE: ankle PF 5-/5, DF 4/5, EVR 4/5, INV 4+/5; knee ext 4/5, flexion 4/5; hip; flexion 4/5, abd 4/5, ext 4/5. Core strength- poor. Stairs: Pt. has difficulty with reciprocal motion, heavy use of B BHR with both ascending and descending. She is still having a lot of difficulty with walking especially with frequent lack of L foot clearance. She is slowly progressing, but is QUITA or I with her functional mobility as of yet. Plan Plan: Continue to challenge balance, consider floor ladder in/out pattern as well as sit to stands increasing WB on L LE. Asking for another 4 weeks of PT x2 weekly with focus on control of gait, LLE strength and dynamic balance. Progress gait with walker for safety. Balance/Gait/Functional tests - Balance/Special Test Scores Functional Gait Assessment Score: 8 % Disability: 73.3400 CATSIB Score (Max score 120 seconds): 44 Tinetti Balance Score: 7 Tinetti Gait Score: 5 Tinetti Balance & Gait Score: 12 Lower Extremity Functional Score: 31 Goals Goal 1:: LTG: Pt. to be I with HEP for balance and LE strengthening. Goal Time Frame: 4-6 Weeks Goal Progress: Progressing Goal 2:: STG: Pt. to ambulate with FWW QUITA without LOB for 300'+. (350' distance, but is still CGA with gait due to lack of safety and decreased L foot clearance) Goal Time Frame: 2 Weeks Goal Progress: Progressing Goal 3:: LTG: Pt. to be I with gait with out use of AD without LOB. Goal Time Frame: 4-6 Weeks Goal Progress: Not Progressing Goal 4:: LTG: Pt. to complete 6 MWT without AD with distance of at least 900'. (current 350ft.) Goal Time Frame: 4-6 Weeks Goal Progress: Progressing Goal 5:: LTG: Pt. to have increased BLE strength to at least 5-/5 throughout. Goal Time Frame: 4-6 Weeks Goal Progress: Progressing Goal 6:: LTG: Pt. to complete 30 sec sit to stand rep test with score of at least 11 reps (7 reps currently) Goal Progress: Progressing Anticipated Interventions Patient/Client Instruction: Educate patient on: Condition, Plan of Care, Risk Factors, Benefits of Fitness Program For the Purpose of:: To improve decision making, To facilitate caregiver knowledge, To improve self management, To prevent re-injury, To improve ability to perform tasks related to life management Therapeutic Exercise to Include: Strength training, Power training, Balance training, Coordination, Body mechanics, Postural training, Gait and locomotor training, Dynamic Lumbar Stabilization For the Purpose of:: To decrease pain, To decrease swelling/inflammation, To increase ROM, To improve nutrient delivery to tissue, To increase oxygenation perfusion, To improve muscle performance and motor function, To decrease soft tissue restriction, To increase flexibility/ROM, To improve balance Please do not hesitate to contact me at [phone] by phone or if you have questions or concerns regarding this new plan of care! Sincerely, Catracho Morris DPT
--- NOTE | 2021-04-03 16:20 | HP.SP.AD_ITS ---
History - History Date of Eval: 04/03/21 Medical Diagnosis (from RX): CVA (I63.3); Hemiparesis another late effects of CVA (I69.359; I69.398) Previous speech therapy: No Other Relevant Medical History/Diagnoses/Surgery: HENRI RICARDO is a 75 year old female who was seen for skilled speech therapy eval following a dx of CVA. Pt suffered stroke on 2020. Pt states she was in the hospital for about two days- pt reporting initially having difficulty with walking and talking- She is also reporting some difficulty with word finding. Pt. is hopeful to get back to all previously functional mobility in home and community. Pt's son present w/her for evaluation. Pt reporting that approximately 2 weeks following CVA she has noticed a decline in speech skills. She is working on getting an MRI scheduled to determine if CVA extended or if there is a new infarct. She is also having increased feelings of fatigue. Pt reporting awareness of speech errors. Pt's son reporting him and his sister are taking care of medications and finances. 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 Symmetry of the face at rest reveals L lower facial droop and while making specific movements was observed to be within functional limits. Off- target groping, uncoordinated movements or signs of weakness were not noted. Appreciated structural and functional integrity of the lips, tongue, hard and soft palates appeared to be intact. - Respiratory Status Respiratory Status: Room Air Objective Cog/Ling/Com - Test Administered Epjoybzhs-Wbmufjsyus-Qsgcfkebxxxjr Assessment Administered: Yes Ulraxoiqp-Bwdgekbbbc-Thkhnuivlwcea Assessment: Cognitive ? Linguistic skills were evaluated using patient/family interview, skilled observation and informal evaluation through tasks completed by the patient. - Answer Yes/No Questions Simple: WFL Complex: WFL - Follows Commands 1 Step: WFL 2 Step: WFL - Automatic Sequences Automatic Sequences: WFL - Naming Responsive naming: Mild - Executive Function Comments Comments: Pt completed alternating attention task via trail making w/0% acc independently. Pt connecting all the numbers together and all the letters together w/o alternating back and forth between them. Pt completed planning, organizing, and sequencing task via clock drawing w/ functional contour, inclusion of 12/12 numbers, appropriate hand placement and labeling of short/long hands. Objective Dysarthira/Motor - Speech Intelligibility Phonemes: Mild Single Words: Mild Sentences: Moderate Conversation: Moderate - Volume Volume: Mild Loudness: Bee loudness - Sounds Sounds in Error: Pt demonstrating intermittent difficulty w/ S blends; however, Pt's oral motor strength in articulating all speech sounds is reduced resulting in mild dysarthria. Pt's overall speech intelligibility to this unfamiliar listener was approximately 80% acc. - Consistency w/Multiple Repetitions Words: Mild - Observation Observation of Apraxia of Speech: Yes - Instances of mild groping = 2x on multisyllabic words Oral Groping for Placement: No - Awareness/Strategy Use Aware of motor speech impairment, unable to use strategies to improve intelligibility: Yes Other Impressions - Comments Quick Aphasia Battery -: Quick Aphasia Battery (QAB) completed to assess mixed receptive and expressive aphasia. The test assesses Pt's skills in verbal expression, repetition, auditory comprehension, and fluency. Results are as follows: Grammatical construction ? 70%; Word comprehension - 100%; Sentence comprehension - 100%; Word finding ? 75%; Repetition ? 87.5%; Reading ? 95%; Speech motor programming ? 87.5%; QAB Overall - 176/200 (88%). --------- The pt presents with mild expressive aphasia characterized by deficits in confrontation naming (e.g., ?swinging bed? for hammock) and word finding (e.g., [place] fryer for deep fryer), and conversational fluency (anomia, empty speech). Pt?s aphasia is coupled w/mild apraxia and mild dysarthria, which are an impairment of speech motor planning and impairment of muscles used for speech production, respectively, that exacerbates her anomia and word finding difficulties. Plan - Plan Plan: Will recommend Pt for weekly outpatient speech therapy intervention address mild expressive aphasia, apraxia, and dysarthria. Pt would benefit from oral motor exercises, verbal and visual modeling, verbal/visual and tactile cuing, repeated practice, speech intelligibility strategies, circumlocution training, and immediate feedback to improve articulation and coordination. Without skilled intervention Pt is at risk for difficulty communicating basic, medical, emergent, social wants & needs, and interacting with family/friends at home, during social interactions, and at work. Following discussion w/Pt and son, would also rx Pt for repeat occupational therapy evaluation to assess abilities to complete ADLs at home. - Recommendations MBS: No Treatment Warranted: Yes - Frequency Frequency: 2x /Week Duration: 2 Months Visits in this POC: 16 - Prognosis Prognosis: Good - Goals that are Established: Determination:: Goals will be added/modified as deemed necessary and appropriate. Therapy will be discontinued when results of re-evaluation indicate therapy is no longer needed or lack of progress has been documented. - Goal #1-5 Goal #1: The Pt will demonstrate and utilize recommended compensatory articulation techniques (increased vocal intensity, reduced rate of speech, exaggerated articulation) to reduce articulation errors to 5% at the sentence level (S blends, final consonants) with minimal verbal cues across 3 consecutive sessions to facilitate increased expressive communication abilities in the home and social environments. Goal #2: Pt will complete basic to mod complex executive functioning tasks (e.g., planning, organizing, sequencing, alternating attention, and problem solving/reasoning) with 85% acc independently across 3 measured opportunities. Goal #3: Pt will establish volitional control of respiration evidenced by utilization of diaphragmatic breathing to implement phrasing technique during structured tasks and conversation with 90% accuracy independently across 3 measured opportunities. Goal #4: Pt will independently demonstrate use of recommended circumlocution and expanding expression strategies to reduce word retrieval errors in conversation to 5% of the time across 3 measured opportunities to improve word finding and word description. Education - Patient has Indicated that the Following Identified Educational Needs: None The Patient has indicated that they have no educational or learning abilities that may effect their care.: Yes - Patient Instruction Patient Education: Diagnosis, Treatment Plan, Goals Person Taught: Patient, Family Teaching Method: Discussion Response to teaching: Return demonstration, Verbalize understanding
--- NOTE | 2021-05-14 08:30 | HP.PTREVAL ---
Dr. Agustina Eisenberg, DO, It has been my pleasure to treat HENRI RICARDO over the last 21 visits for CVA. Please see the progress note below for an update on the physical therapy plan of care! Subjective: Pt reports she has done her seated bicycle and states it went well. Pt continues to feel fatigued. Pt. reports being 50% better overall. Objective/Function: STRENGTH: RIGHT: hip flexion 4, abduction 5, adduction 5 knee flexion 5, extension 5 ; LEFT: hip flexion 4, abduction 5, adduction 5, knee flexion 5, extension 5. GAIT: w/ rollator drags left foot when multitasking; w/out AD able to ambulate with contact guard and mod LOB, when fatigued pt has significant decrease in L hip flexion during swing phase. 6 MWT: 505 feet with rollator. Pt continues to progress towards goals. She is walking better with and without AD. She is safe with AD I, but needs CGA with out AD. Pt. again becomes distracted with gait and external input. She is able to have good gait progression and mechanics, but does fall apart with distractions. STAIRS: Pt. is able to negotiate steps 2 HRs with good tolerance. She does need SBA for safety, but has progressed well. She is overall progressing well, but continues to require further work on multi tasking with gait. Plan Plan: Continue working on gait w/ verbal cueing to lift up left foot. Dynamic balance activities - multi directional stepping over hurdles. I am asking for more visits with focus on multi step/input tasks with gait and functional tasks. Balance/Gait/Functional tests - Balance/Special Test Scores Functional Gait Assessment Score: 8 % Disability: 73.3400 CATSIB Score (Max score 120 seconds): 44 Tinetti Balance Score: 7 Tinetti Gait Score: 5 Tinetti Balance & Gait Score: 12 Lower Extremity Functional Score: 36 TUG Test Time Seconds: 20.5 Tug Test: 20-30sec.=variable mobility 30 Second Chair Rise Test Seconds: 8 6 Minute Walk Test: 505ft Goals Goal 1:: LTG: Pt. to be I with HEP for balance and LE strengthening. Goal Time Frame: 4-6 Weeks Goal Progress: Progressing Goal 2:: STG: Pt. to ambulate with FWW QUITA without LOB for 300'+. (350' distance, but is still KOREY with gait due to lack of safety and decreased L foot clearance) Goal Time Frame: 2 Weeks Goal Progress: Goal Met Goal 3:: LTG: Pt. to be I with gait with out use of AD without LOB. Goal Time Frame: 4-6 Weeks Goal Progress: Progressing Goal 4:: LTG: Pt. to complete 6 MWT without AD with distance of at least 900'. (current 350ft.) Goal Time Frame: 4-6 Weeks Goal Progress: Progressing Goal 5:: LTG: Pt. to have increased BLE strength to at least 5-/5 throughout. Goal Time Frame: 4-6 Weeks Goal Progress: Progressing Goal 6:: LTG: Pt. to complete 30 sec sit to stand rep test with score of at least 11 reps (7 reps currently) Goal Progress: Progressing Anticipated Interventions Patient/Client Instruction: Educate patient on: Condition, Plan of Care, Risk Factors, Benefits of Fitness Program For the Purpose of:: To improve decision making, To facilitate caregiver knowledge, To improve self management, To prevent re-injury, To improve ability to perform tasks related to life management Therapeutic Exercise to Include: Strength training, Power training, Balance training, Coordination, Body mechanics, Postural training, Gait and locomotor training, Dynamic Lumbar Stabilization For the Purpose of:: To decrease pain, To decrease swelling/inflammation, To increase ROM, To improve nutrient delivery to tissue, To increase oxygenation perfusion, To improve muscle performance and motor function, To decrease soft tissue restriction, To increase flexibility/ROM, To improve balance Please do not hesitate to contact me at [phone] by phone or if you have questions or concerns regarding this new plan of care! Sincerely, Catracho Morris DPT
--- NOTE | 2021-06-15 16:04 | HP.SP.DC ---
ST Discharge Summary - Discharged: Discharge: Pt was seen for initial speech/language/cognitive evaluation at [facility] on 04/03/21 s/p CVA. Pt attended 10 sessions to target word retrieval, problem solving/reasoning, executive functioning, breath support, and mild dysarthria. Pt participated in re-evaluation of skill performance in these cognitive-linguistic domains on 06/15/21. Following re-evaluation of Pt?s current level of cognitive function, self-report, and caregiver report, Pt deemed appropriate for d/c from speech therapy at this time. Pt provided w/home carry over activities to continue targeting problem solving/reasoning and executive functioning tasks. Pt discharged from speech therapy caseload on this date, 06/15/21. Suspect Pt is at baseline function. Thank you for allowing me to participate the care of your Pt. Will reevaluate at Pt?s request following script from physician.
== END 2021-06-15 19:00 | disposition home or self-care (01) ==
LOC: SP 15:00
PROVIDERS: PCP Internal Medicine; Referring Provider Internal Medicine; Visit Provider Internal Medicine
DX: R47.89 Other speech disturbances (principal)
CPT/HCPCS: 92507; 92523; 97110; 97112; 97116; 97161; 97164; 97166; 97530

== ENCOUNTER 2022-04-06 03:47 | Emergency (ER) | payer MEDICARE, SELFPAY ==
[2022-04-06 03:48] VITALS: BP 178/62; PULSE 79; RESP 18; TEMP 36.4; O2SAT 95; BMI 32.9
--- NOTE | 2022-04-06 04:26 | RAD_ITS ---
EXAM: XR LUMBOSACRAL SPINE, 2 OR 3 VIEWS CLINICAL INDICATION: pain pain TECHNIQUE: Frontal and lateral views of the lumbar spine and sacrum. This report was created using [employer] report [employer] technology. COMPARISON: Abdominal ultrasound 01/29/2021. FINDINGS: VERTEBRAE: There is multilevel spondylosis. There is a transitional vertebra which probably represents sacralization of the L5 vertebra. There is grade 1 anterolisthesis at the L4-5 level, on a degenerative basis. Preserved vertebral body height. No fracture. Preservation of the normal lumbar lordosis. No significant facet arthropathy. DISC SPACES: There are multilevel degenerative changes of facet joints. There is mild multilevel disc space narrowing. GASTROINTESTINAL TRACT: Unremarkable as visualized. Included bowel gas pattern is non-obstructive. OTHER FINDINGS: There are multiple calcified gallstones. RAD/Lumbar Spine 2 or 3 Views IMPRESSION: 1. Multilevel degenerative changes. 2. No demonstrated fracture. Electronically Signed: Isaias Sepulveda MD at 5:22 EDT Reading Location ID and State: [facility] / [place] , Service support ,
--- NOTE | 2022-04-06 04:26 | RAD_ITS ---
EXAM: XR LEFT HIP WITH PELVIS WHEN PERFORMED, 2 OR 3 VIEWS CLINICAL INDICATION: pain pain TECHNIQUE: Two or three views of the left hip with pelvis when performed. This report was created using [employer] report generation technology. COMPARISON: None. FINDINGS: BONES/JOINTS: Unremarkable. No displaced fracture. No destructive or sclerotic lesions. Note that overlapping bowel shadows may however obscure fine detail. Sacroiliac joint is unremarkable. No widening of the pubic symphysis. The articular structures are unremarkable. SOFT TISSUES: Unremarkable. No soft tissue swelling or gas. RAD/HIP, UNI W/ Pelvis 2-3 Views IMPRESSION: No evidence of displaced pelvic or hip fracture. Electronically Signed: Isaias Sepulveda MD at 5:18 EDT Reading Location ID and State: [facility] / [place] , Service support ,
[2022-04-06] MEDS: HYDROmorphone 1 MG/ML Syringe IM (04:32)
--- NOTE | 2022-04-06 06:04 | EX.ED.DYSGE1 ---
HPI History of Present Illness Chief Complaint: Lower Extremity Injury Informant: patient and family Narrative Narrative: 76-year-old female presenting to the emergency room with low back pain. The patient states this is been present for the past couple days. She notes that it radiates down into her upper left thigh and hip. She denies any trauma. No loss of bowel or bladder control. She states it hurts to move. She has been taking aspirin for the pain. She has had episodes like this in the past. [facility] Medical History Acute CVA (cerebrovascular accident) Arthritis Back pain Carpal tunnel syndrome on both sides Former tobacco use Glaucoma Heel spur Hyperlipemia Hypertension Home Medications latanoprost 0.005 % eye drops 1 drp EACH EYE QHS Glaucoma 01/28/21 [History Last Taken Unknown] timolol maleate 0.5 % eye drops 1 drp EACH EYE DAILY Glaucoma 01/28/21 [History Last Taken Unknown] aspirin 81 mg chewable tablet 81 mg PO DAILY@0800 #30 tabs 01/29/21 [Rx Last Taken Unknown] hydrochlorothiazide 12.5 mg tablet 12.5 mg PO QAM #30 tabs 04/07/21 [Rx Last Taken Unknown] hydroxyzine pamoate 25 mg capsule (Vistaril) 25 mg PO BID PRN anxiety #10 caps 04/17/21 [Rx Last Taken Unknown] amlodipine 10 mg tablet (Norvasc) 10 mg PO DAILY #90 tabs 02/24/22 [Rx Last Taken Unknown] atorvastatin 40 mg tablet 40 mg PO QHS #90 tabs 02/24/22 [Rx Last Taken Unknown] lisinopril 40 mg tablet 40 mg PO DAILY #90 tabs 02/24/22 [Rx Last Taken Unknown] methylprednisolone 4 mg tablets in a dose pack 4 mg PO UD ##1 04/06/22 [Rx Last Taken Unknown] oxycodone 5 mg capsule 5 mg PO Q6H PRN pain 3 days #12 caps 04/06/22 [Rx Last Taken Unknown] Allergy/AdvReac Type Severity Reaction Status Date / Time No Known Allergies Allergy Verified 04/17/21 19:40 Family History Mother CVA (cerebral vascular accident) Hypertension Father CVA (cerebral vascular accident) Hypertension Brother Diabetes CVA (cerebral vascular accident) Surgical History History of bunionectomy of both great toes S/p bilateral carpal tunnel release Social History household members: none Smoking Status: Never smoker how long ago did patient quit smoking: Quit remotely, primarily social smoker. alcohol intake: current alcohol intake frequency: a few times a week Alcohol type: beer and wine substance use type: does not use what type of physical activity do you participate in: walking ROS ROS ED Constitutional Constitutional ED: Denies chills or weight loss Eyes Eyes: Denies change in vision or diplopia ENT ENT ED: Denies ear pain, rhinorrhea or sore throat Cardiovascular Cardiovascular: Denies chest pain, orthopnea, palpitations or racing heartbeat Respiratory/Chest Respiratory/Chest: Denies cough, dyspnea or orthopnea Gastrointestinal Gastrointestinal: Denies abdominal pain, diarrhea, nausea or vomiting Genitourinary Genitourinary ED: Denies dysuria, hematuria or urinary frequency Musculoskeletal Musculoskeletal: Reports back pain and other Details: left hip pain ; Denies arthralgias or myalgias Integumentary Denies abscess or rash Neurologic Neurologic: Denies headache(s) or weakness Psychiatric Psychiatric: Denies anxiety, depression, suicidal ideation or suicidal thoughts Endocrine Endocrinology: Denies polydipsia, polyphagia or polyuria Allergic/Immunologic Allergic/Immunologic ED: Denies mouth swelling, tongue swelling or urticaria EXAM Physical Exam Const Vital Signs: 04/06/22 03:48 Temperature 97.5 F L Temperature Source Temporal Pulse Rate 79 Respiratory Rate 18 Blood Pressure 178/62 H Blood Pressure Mean 100 Pulse Ox 95 Oxygen Delivery Method Room Air Positive well nourished and well developed General Appearance ED: well developed HEENT Reports normocephalic, head/scalp atraumatic and moist mucous membranes Eyes PERRL and EOMs intact bilaterally Neck no lymphadenopathy, supple and no JVD Resp normal respiratory effort and clear to auscultation bilaterally Cardio regular rate, regular rhythm and no murmurs GI normal to inspection, nondistended, normoactive bowel sounds and non-tender Palpation: soft Back/Spine no CVA tenderness Back/Spine Narrative: Patient has painful slow range of motion. She has tenderness to palpation in the left lumbar paraspinal musculature as well as in the left buttock. No pain with logroll. Neurovascularly appears intact Extremity normal to inspection General Extremety ED: Negative for edema General Extremity: Negative for edema Neuro oriented x3, CN's II-XII intact bilaterally and no sensory deficits noted Neuro Narrative: normal DTR Achilles and Patellar 2+ bilateral Sensorium / Orientation: alert Motor Exam: strength 5/5 throughout Psych mental status grossly normal Mood & Affect: Negative for depressed or tearful Skin no rashes or lesions noted and no wounds MDM MDM MDM Narrative Medical decision making narrative: My interpretation of the plain films of the left hip and pelvis is no acute fracture. My interpretation of the plain films of the lumbar spine is degenerative changes. Patient received a milligram of Dilaudid. It is musculoskeletal in nature. I do not think that there is evidence of cauda equina. We will prescribe some oxycodone and prednisone. Follow-up with primary care is encouraged Radiography Diagnostic Testing: Clinical Impression(s) from Imaging Studies Hip/Pelvis X-Ray 04/06/22 04:26 IMPRESSION: No evidence of displaced pelvic or hip fracture. Electronically Signed: Isaias Sepulveda MD at 5:18 EDT Reading Location ID and State: [facility] / [place] , Service support , Lumbar Spine X-Ray 04/06/22 04:26 IMPRESSION: 1. Multilevel degenerative changes. 2. No demonstrated fracture. Electronically Signed: Isaias Sepulveda MD at 5:22 EDT , Discharge Plan Triage Chief Complaint: Lower Extremity Injury ED Provider: Zafar Chester Dx/Rx/DC Orders Clinical Impression: Back pain, Acute lumbar radiculopathy Instructions: Sciatica Exercise, ED Sciatica Prescriptions: New methylprednisolone [methylprednisolone] 4 mg tablets,dose pack 4 mg PO UD Qty: 1 0RF oxycodone 5 mg capsule 5 mg PO Q6H PRN (Reason: pain) 3 Days Qty: 12 0RF No Action latanoprost 0.005 % drops 1 drp EACH EYE QHS timolol maleate 0.5 % drops 1 drp EACH EYE DAILY Label Comments: 1 drop into both eyes every morning aspirin 81 mg Tablet,Chewable 81 mg PO DAILY@0800 Qty: 30 11RF hydroxyzine pamoate [Vistaril] 25 mg capsule 25 mg PO BID PRN (Reason: anxiety) Qty: 10 0RF hydrochlorothiazide 12.5 mg tablet 12.5 mg PO QAM Qty: 30 1RF Hold Instructions: Home Medication placed on hold at Doctor's office Rx Instructions: take half tablet for first week then increase to full tablet atorvastatin 40 mg tablet 40 mg PO QHS Qty: 90 3RF lisinopril 40 mg tablet 40 mg PO DAILY Qty: 90 3RF amlodipine [Norvasc] 10 mg tablet 10 mg PO DAILY Qty: 90 3RF Primary Care Provider: Evie Disla Referrals: Evie Disla MD [Primary Care Provider] - 3-5 Days Disposition Disposition: Home, Self Care
== END 2022-04-06 06:43 | disposition home or self-care (01) ==
PROVIDERS: Emergency Provider Emergency Medicine; PCP Internal Medicine; Visit Provider Emergency Medicine
DX: M47.26 Other spondylosis with radiculopathy, lumbar region (principal); I10 Essential (primary) hypertension; E78.5 Hyperlipidemia, unspecified; Z79.82 Long term (current) use of aspirin; Z79.899 Other long term (current) drug therapy; Z86.73 Personal history of transient ischemic attack (TIA), and cerebral infarction without residual deficits; Z87.891 Personal history of nicotine dependence
CPT/HCPCS: 72100; 73502; 96372; 99282

== ENCOUNTER → 2022-07-27 | Outpatient (CLI) | payer MEDICARE, SELFPAY ==
[2022-07-27 17:30] LABS: Absolute Lymphocyte Count 4.53 X10^3/uL (0.83-4.51); Absolute Neutrophil Count 4.8 X10^3/uL (2.0-7.7); Basophil# 0.09 X10^3/uL; Basophil% 0.9 % (0-1); Eosinophil# 0.28 X10^3/uL; Eosinophils% 2.7 % (0-5); Hematocrit 42.4 % (37-47); Hemoglobin 13.6 g/dL (12.0-15.0); Lymphocyte # 4.53 X10^3/ul (0.83-4.51); Lymphocyte % 43.3 % (19-41); Mean Corp Hgb Conc 32.1 g/dL (32-36); Mean Corpuscular Hgb 29.4 pg (27.0-32.0); Mean Corpuscular Volume 91.8 fL (81-99); Mean Platelet Vol. 11.6 fl (6.2-12.0); Monocyte% 6.7 % (0-10); NRBC Flagged by Analyzer 0 % (0-5); Neutrophil # 4.81 X10^3/uL (2.7-7.7); Platelet Count 253 K/mm3 (150-450); RBC Distribution Width CV 13.5 % (11.6-14.6); RBC Distribution Width SD 45.4 fl (35.1-43.9); Red Blood Count 4.62 M/mm3 (4.2-5.4); White Blood Count 10.5 K/mm3 (4.4-11.0)
[2022-07-27 18:03] LABS: AST(SGOT) 15 U/L (15-37); Alanine Aminotransfer ALT/SGPT 26 U/L (13-56); Albumin, Serum 3.8 g/dL (3.2-5.0); Alkaline Phosphatase 99 U/L (45-117); Anion Gap 8 (5-15); BUN 16 mg/dL (7-18); BUN/Creat Ratio 16.6 RATIO (10-20); Calcium,Total 9.5 mg/dL (8.5-10.1); Chloride 107 mmol/L (98-107); Creatinine, Serum 0.96 mg/dL (0.55-1.02); EST Glomerular Filtration Rate 60 mL/min (>60); Est Glom Filt Rate - Afr Amer 72 mL/min (>60); Globulin 3.7 g/dL (2.2-4.2); Glucose 94 mg/dL (74-106); Potassium 3.5 mmol/L (3.5-5.1); Protein, Total 7.5 g/dL (6.4-8.2); Sodium Level 141 mmol/L (136-145)
[2022-07-27 18:05] LABS: Vitamin B12 344 pg/mL (211-911); Vitamin D,25 Hydroxy 31.7 ng/mL
== END | disposition home or self-care (01) ==
LOC: MTLAB 15:29
PROVIDERS: PCP Internal Medicine; Referring Provider Internal Medicine; Visit Provider Internal Medicine
DX: E55.9 Vitamin D deficiency, unspecified (principal); E53.8 Deficiency of other specified B group vitamins
CPT/HCPCS: 36415; 80053; 82306; 82607; 85025